=== PATIENT | male | born 1975 | race African-American/Black ===

== ENCOUNTER 2019-06-01 09:47 | Emergency (ER) | payer BC, SELFPAY ==
[2019-06-01 09:55] VITALS: BP 144/80; PULSE 84; RESP 15; TEMP 37.7; O2SAT 100
[2019-06-01 09:58] VITALS: O2SAT 100
--- NOTE | 2019-06-01 10:13 | ED.URI ---
HPI - URI/Sore Throat General Chief Complaint: Upper Respiratory Infection <Cinthya Das PA-C - Last Filed: 06/01/19 10:21> Stated Complaint: FEVER, CHILLS, BODY ACHES <Cinthya Das PA-C - Last Filed: 06/01/19 10:21> Time Seen by Provider: 06/01/19 09:54 <DAE Boudreaux Last Filed: 06/01/19 10:21> Source: patient <DAE Boudreaux Last Filed: 06/01/19 10:21> Mode of arrival: ambulatory <DAE Boudreaux Last Filed: 06/01/19 10:21> Limitations: no limitations <DAE Boudreaux Last Filed: 06/01/19 10:21> History of Present Illness HPI Narrative: This is a 44 year old male that presents to the ER for cold symptoms since yesterday. Reports over the last week he did have a mild cough. Then last night he started to have fever, myalgias and fatigue as well. Also reports some congestion and rhinorrhea. He did not get his influenza vaccine this year. Denies chest pain or shortness of breath, <Cinthya Das PA-C - Last Filed: 06/01/19 10:21> Related Data Allergies/Adverse Reactions: Allergies Allergy/AdvReac Type Severity Reaction Status Date / Time No Known Allergies Allergy Verified 06/01/19 09:58 <Cinthya Das PA-C - Last Filed: 06/01/19 10:21> Review of Systems Review of Systems: Narrative: CONSTITUTIONAL: Reports fever, chills ENT: Reports rhinorrhea, congestion. Denies sore throat, or otalgia. CARDIOVASCULAR: Denies chest pain RESPIRATORY: Reports cough. Denies dyspnea. <DAE Boudreaux Last Filed: 06/01/19 10:21> All systems reviewed & are unremarkable except as noted in HPI and below <DAE Boudreaux Last Filed: 06/01/19 10:21> PMFSH Past Medical History Medical History: Medical History (Updated 03/14/20 @ 10:20 by Cinthya Das PA-C) No significant medical problems <Cinthya Das PA-C - Last Filed: 06/01/19 10:21> Social History Social History: Social History (Updated 06/01/19 @ 10:15 by Cinthya Das PA-C) Smoking status: Never smoker Gender identity (if verbalized by the patient): Male <Cinthya Das PA-C - Last Filed: 06/01/19 10:21> Exam Narrative: Exam Narrative: GENERAL: Well-appearing, well-nourished, and in no acute distress. HEAD: Normocephalic, atraumatic. EYES: EOMI. ENT: Nares clear, no rhinorrhea or epistaxis. Mucous membranes moist. Oropharynx without tonsillar hypertrophy exudate or other lesions. Bilateral TMs pearly allen non-bulging NECK: Supple. No adenopathy or masses. CHEST: Clear to auscultation. No respiratory distress. No wheezes rales or rhonchi HEART: Regular rate and rhythm. No murmur heard. Normal peripheral pulses. EXTREMITIES: Normal range of motion. No edema. SKIN: Warm, dry, no rash. NEURO: No focal deficits. Alert and oriented x3. PSYCH: Normal mood and affect <Cinthya Das PA-C - Last Filed: 06/01/19 10:21> Course Vital Signs Vital signs: Vital Signs Temperature 99.9 F H 06/01/19 09:55 Pulse Rate 84 06/01/19 09:55 Respiratory Rate 15 06/01/19 09:55 Blood Pressure 144/80 H 06/01/19 09:55 Pulse Oximetry 100 06/01/19 09:55 Temperature 99.9 F H 06/01/19 09:55 Pulse Rate 81 06/01/19 10:31 Respiratory Rate 14 06/01/19 10:31 Blood Pressure 124/75 06/01/19 10:31 Pulse Oximetry 100 06/01/19 10:31 <Cinthya Das PA-C - Last Filed: 06/01/19 10:21> Vital Signs Temperature 99.9 F H 06/01/19 09:55 Pulse Rate 84 06/01/19 09:55 Respiratory Rate 15 03/14/20 09:55 Blood Pressure 144/80 H 06/01/19 09:55 Pulse Oximetry 100 06/01/19 09:55 Temperature 99.9 F H 06/01/19 09:55 Pulse Rate 81 06/01/19 10:31 Respiratory Rate 14 06/01/19 10:31 Blood Pressure 124/75 06/01/19 10:31 Pulse Oximetry 100 06/01/19 10:31 <Emelia Ohara MD - Last Filed: 06/01/19 17:16> MDM - URI/Sore Throat MDM Narrative Medical decision making narrative: Patient pres
[2019-06-01] MEDS: IBUPROFEN 600 MG TABLET PO (10:23)
[2019-06-01] MEDS: OSELTAMIVIR PHOSPHATE 75 MG CAPSULE PO (10:23)
[2019-06-01 10:31] VITALS: BP 124/75; PULSE 81; RESP 14; O2SAT 100
== END 2019-06-01 10:32 | disposition home or self-care (01) ==
PROVIDERS: Emergency Provider General Practice
DX: J10.1 Influenza due to other identified influenza virus with other respiratory manifestations (principal)
CPT/HCPCS: 87804; 99283; A9270

== ENCOUNTER 2019-11-05 10:38 | Emergency (ER) | payer BC, SELFPAY ==
[2019-11-05 11:16] VITALS: BP 114/62; PULSE 66; RESP 18; TEMP 36.7; O2SAT 99
[2019-11-05 11:18] VITALS: RESP 18
--- NOTE | 2019-11-05 11:54 | ED.GENADULT ---
HPI - General Adult General Chief complaint: Recheck/Abnormal Lab/Rx Stated complaint: wants covid test/cough Time Seen by Provider: 11/05/19 11:36 Source: patient Mode of arrival: ambulatory Limitations: no limitations History of Present Illness HPI narrative: Patient presents for COVID testing. His son tested +3 weeks ago. He needs a note for work that he can return. He has had a slight cough for couple weeks. He has had no fever chills or sweats. He has no nausea abdominal pain or diarrhea. He takes no prescription medication. He denies ever having had surgery. He smokes cigars. Drinks moderate alcohol. Does not smoke marijuana. He has no pain. 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 Severity: mild Related Data Allergies Allergy/AdvReac Type Severity Reaction Status Date / Time No Known Allergies Allergy Verified 06/01/19 09:58 Review of Systems Review of Systems: Narrative: CONSTITUTIONAL: Denies fever, chills, or sweats. ENT: Denies rhinorrhea, congestion, sore throat, or otalgia. CARDIOVASCULAR: Denies chest pain, palpitations, or edema. RESPIRATORY: Denies cough or dyspnea. GASTROINTESTINAL: Denies abdominal pain, nausea, vomiting, or diarrhea. SKIN: Denies rash or itching. MUSCULOSKELETAL: Denies back pain, joint pain, or myalgia. NEUROLOGIC: Denies headache, numbness, or weakness. All systems reviewed & are unremarkable except as noted in HPI and below PMFSH Past Medical History Medical History Exposure to COVID-19 virus No significant medical problems Surgical History Surgical History No pertinent past surgical history Social History Social History (Updated 11/05/19 @ 11:57 by Marsha Morris MD) Smoking status: Current some day smoker Tobacco type: cigars Alcohol intake: current Substance use: never Gender identity (if verbalized by the patient): Male Exam Narrative: Exam Narrative: GENERAL: Well-appearing, well-nourished, and in no acute distress. Tall and well muscled. HEAD: Normocephalic, atraumatic. EYES: PERRLA and EOMI. ENT: Nares clear, no rhinorrhea or epistaxis. Mucous membranes moist. NECK: Supple. CHEST: Clear to auscultation. No respiratory distress. HEART: Regular rate and rhythm. No murmur heard. Normal peripheral pulses. ABDOMEN: Soft, nontender, nondistended, normal active bowel sounds. EXTREMITIES: Normal range of motion. No edema. SKIN: Warm, dry, no rash. NEURO: No focal deficits. Alert and oriented x3. PSYCH: Normal mood and affect. Course Vital Signs Vital signs: Vital Signs Temperature 98.1 F 11/05/19 11:16 Pulse Rate 66 11/05/19 11:16 Respiratory Rate 18 11/05/19 11:16 Blood Pressure 114/62 11/05/19 11:16 Pulse Oximetry 99 11/05/19 11:16 Temperature 98.1 F 11/05/19 11:16 Pulse Rate 66 11/05/19 11:16 Respiratory Rate 18 11/05/19 11:18 Blood Pressure 114/62 11/05/19 11:16 Pulse Oximetry 99 11/05/19 11:16 Medical Decision Making Medical Records Medical records reviewed: Yes I reviewed the patient's medical records. Vital Signs Vital Signs: Vital Signs Temperature 98.1 F 11/05/19 11:16 Pulse Rate 66 11/05/19 11:16 Respiratory Rate 18 11/05/19 11:16 Blood Pressure 114/62 11/05/19 11:16 Pulse Oximetry 99 11/05/19 11:16 Temperature 98.1 F 11/05/19 11:16 Pulse Rate 66 11/05/19 11:16 Respiratory Rate 18 11/05/19 11:18 Blood Pressure 114/62 11/05/19 11:16 Pulse Oximetry 99 11/05/19 11:16 Discharge Plan Discharge Clinical Impression: Exposure to COVID-19 virus Patient Disposition: Home, Self-Care Condition: Stable Instructions: Normal Exam (ED) Additional Instructions: Outpatient COVID testing sheet given to [facility]?. Prescriptions: No Action oseltamivir 75 mg capsule 75 mg PO Q12H 5 Days Qty: 10 RF: 0 Follow-up/Referrals: PHYSICIAN,HYDRO OPERATOR [Pr
[2019-11-05 12:49] VITALS: BP 114/67; PULSE 62; RESP 16; TEMP 36.8; O2SAT 100
== END 2019-11-05 12:51 | disposition home or self-care (01) ==
PROVIDERS: Emergency Provider Emergency Medicine
DX: Z20.828 Contact with and (suspected) exposure to other viral communicable diseases (principal); R05 Cough; F17.290 Nicotine dependence, other tobacco product, uncomplicated
CPT/HCPCS: 99281

== ENCOUNTER 2019-12-30 16:51 | Emergency (ER) | payer BC, SELFPAY ==
--- NOTE | ~2019-12-30 | CT_ITS ---
EXAMINATION: CTA brain carotid EXAM DATE: 12/30/2019 18:34 INDICATION: Severe frontal headache. TECHNIQUE: Noncontrast head CT. Spiral CTA of the carotid arteries was performed with intravenous i njection 100 cc of Omnipaque 350. Axial, coronal, sagittal reformatted images reviewed. Additional r eformatted images created on dedicated 3-D workstation. NASCET comparable standard used to assess th e degree of arterial stenosis. Spiral CT angiogram cerebral arteries performed with the same intrave nous injection of contrast. Source images of the brain CTA transferred to dedicated workstation for 3 -D rotational image creation. Coronal, sagittal maximum intensity pixel images also reviewed. The d ose-length product (DLP) for this examination was 1827.67 mGy-cm. The exposure was tailored accordi ng to patient size, and iterative reconstruction (ASIR) was used as additional dose reduction techniq ue. There is no prior study for comparison. FINDINGS: There is no carotid plaque or stenosis. The vertebral arteries are codominant. There is no carotid or vertebral basilar arterial dissection or fibromuscular dysplasia. There are no cerebral a rtery aneurysms. There is symmetric cerebral artery arborization. The sagittal, transverse and sigmoi d sinuses enhance normally, no venous sinus thrombosis. Internal cerebral veins also enhance normally . There is no acute intraparenchymal hemorrhage. No evidence of intraparenchymal brain mass lesion. N o evidence of acute infarction. There is no mass effect or midline shift. There is no obstructive hyd rocephalus suspected. There are no extra-axial collections. There are no calvarial acute fractures. Completely opacified frontal and ethmoid sinuses. There is mild bilateral maxillary sinus mucoperiost eal thickening, but with moderate amount of fluid in both of these sinuses. Sinusitis. IMPRESSION: 1. No carotid stenosis. 2. Extensive sinusitis. Reviewed, dictated and finalized at location A.
[2019-12-30 17:03] VITALS: BP 116/73; PULSE 81; RESP 16; TEMP 36.6; O2SAT 99
[2019-12-30 17:40] LABS: Basophils Percent Auto 0.6 % (0.2-1.2); Eosinophils Absolute Auto 0.3 K/mm3 (0-0.3); Eosinophils Percent Auto 8.2 % (0-4.4); Hematocrit 41.6 % (42.0-52.0); Hemoglobin 14.4 g/dL (14.0-18.0); Lymphocytes Absolute Auto 1.23 K/mm3 (0.9-3.2); Lymphocytes Percent Auto 37.2 % (18.3-44.2); Mean Corpuscular HGB Conc 34.6 g/dl (32-36); Mean Corpuscular Hemoglobin 33.3 pg (26-34); Mean Corpuscular Volume 96.1 fl (80-100); Mean Platelet Volume 11.1 fl (7.4-10.4); Monocytes Absolute Auto 0.4 K/mm3 (0.1-0.6); Monocytes Percent Auto 12.1 % (2.6-8.5); Neutrophils Absolute Auto 1.4 K/mm3 (1.3-6.7); Neutrophils Percent Auto 41.9 % (45.5-73.1); Platelet Count Result 209 k/mm3 (150-375); Red Blood Count 4.33 M/mm3 (4.6-6.20); White Blood Count 3.3 K/mm3 (4.5-10.0)
[2019-12-30 17:49] LABS: Anion Gap 7 mmol/L (8-16); Blood Urea Nitrogen 17 mg/dL (9-20); Carbon Dioxide 27 mmol/L (22-30); Chloride 104 mmol/L (98-107); Estimated CRCL calculation 89 ml/min; Estimated Glomerular Filt Rate > 60; Glucose 86 mg/dL (75-110); Potassium 4.6 mmol/L (3.4-5.0); Sodium 138 mmol/L (137-145)
--- NOTE | 2019-12-30 18:01 | ED.GENADULT ---
HPI - General Adult General Chief complaint: Headache Stated complaint: headache Time Seen by Provider: 12/30/19 17:22 Source: patient History of Present Illness HPI narrative: Patient is a 44 y/o male complaining of bilateral frontal headache for 2 weeks. He describes the pain as throbbing and rates it as 7/10. He took Ibuprofen which did not help with his headache. He denies any fever, chills or focal weakness. He states that he had an episode of dizziness like room spinning sensation yesterday which lasted a few minutes. He has no dizziness at this time. He also experiences left finger locking up sometimes. Related Data Home Medications Medication Instructions Recorded Confirmed multivitamin,dp-[id number]-[id number] tablet DAILY 12/30/19 [Complete Multivitamin] Allergies Allergy/AdvReac Type Severity Reaction Status Date / Time No Known Allergies Allergy Verified 12/30/19 17:09 Review of Systems Constitutional: Constitutional: Denies chills, Denies fever(s), Reports headache(s) and Denies weakness Eyes: Eyes: Denies blurry vision ENT: Denies headache(s) and Denies neck pain Cardiovascular: Cardiovascular: Denies chest pain and Denies dyspnea Respiratory: Respiratory: Denies cough and Denies dyspnea Gastrointestinal: Gastrointestinal: Denies abdominal pain, Denies diarrhea, Denies nausea and Denies vomiting Genitourinary: Genitourinary: Denies hematuria and Denies dysuria Musculoskeletal: Musculoskeletal: Denies back pain and Denies neck pain Neurologic: Reports dizziness, Reports headache(s) and Denies weakness [facility] Past Medical History Medical History (Updated 12/31/19 @ 00:00 by [facility]) Exposure to COVID-19 virus No significant medical problems Surgical History Surgical History No pertinent past surgical history Social History Social History Smoking status: Current some day smoker Tobacco type: cigars Alcohol intake: current Substance use: never Gender identity (if verbalized by the patient): Male Exam Const: General: no acute distress and well developed Orientation/consciousness: oriented to person, oriented to place, oriented to time and patient oriented x3 HENMT: Head: normocephalic Ears: external ears normal General nose exam: Normal external nose present Eyes: General: appearance normal, both eyes and all related structures Conjunctivae: conjunctivae normal Neck: Neck: normal visual inspection and full ROM Chest: Chest palpation & inspection: normal inspection of the chest and no tenderness Resp: Effort & Inspection: normal respiratory effort Auscultation: clear to auscultation bilaterally Cardio: Rate: regular rate Rhythm: regular rhythm GI: GI Palp: No abdominal tenderness and Yes Soft to palpation Skin: General skin exam: normal color and turgor normal Neuro: General: oriented to person, oriented to place, oriented to time and patient oriented x3 Cranial nerves: Yes CN's II-XII intact bilaterally Cognition (Neuro): normal cognition Speech: normal speech Motor exam (neuro): 5/5 motor strength present throughout Sensory Exam: normal sensation Coordination: [id number]-[id number] test normal and fmsm-lx-loex test normal Extrem: General: normal to inspection, full ROM and no pedal edema Psych: Appearance: grossly normal Mental Status: mental status grossly normal Affect: normal affect Course Vital Signs Vital signs: Vital Signs Temperature 36.6 C 12/30/19 17:03 Pulse Rate 81 12/30/19 17:03 Respiratory Rate 16 12/30/19 17:03 Blood Pressure 116/73 12/30/19 17:03 Pulse Oximetry 99 12/30/19 17:03 Temperature 36.6 C 12/30/19 17:03 Pulse Rate 68 12/30/19 19:36 Respiratory Rate 16 12/30/19 19:36 Blood Pressure 128/72 12/30/19 19:36 Pulse Oximetry 100 12/30/19 19:36 Medical Decision Making Vital Signs Vit
[2019-12-30] MEDS: KETOROLAC 30 MG/ML VIAL (*BKC) IV PUSH (18:16)
[2019-12-30 19:36] VITALS: BP 128/72; PULSE 68; RESP 16; O2SAT 100
== END 2019-12-30 19:38 | disposition home or self-care (01) ==
PROVIDERS: Emergency Provider Emergency Medicine; PCP Internal Medicine
DX: J32.9 Chronic sinusitis, unspecified (principal); R42 Dizziness and giddiness; F17.290 Nicotine dependence, other tobacco product, uncomplicated
CPT/HCPCS: 36415; 70496; 70498; 80048; 85025; 96374; 99284; J1885; Q9967

== ENCOUNTER → 2020-05-30 07:00 | Outpatient (CLI) | payer BC, SELFPAY ==
[2020-05-30 18:54] LABS: SARS-CoV-2 RNA PCR Negative
== END ==
PROVIDERS: PCP Internal Medicine; Visit Provider Internal Medicine
DX: J01.90 Acute sinusitis, unspecified (principal); Z20.822 Contact with and (suspected) exposure to COVID-19
CPT/HCPCS: C9803; U0003; U0005

== ENCOUNTER 2020-10-06 16:01 | Emergency (ER) | payer BC, SELFPAY ==
--- NOTE | ~2020-10-06 | XR_ITS ---
EXAMINATION: XR chest 2V DATE: 10/06/2020 16:34 INDICATION: Productive cough and shortness of breath TECHNIQUE: PA and lateral views of the chest are obtained. COMPARISON: None available FINDINGS: The lungs are free of acute opacities. There is no pleural effusion or pneumothorax. The ca rdiomediastinal silhouette is normal. The visualized bones and soft tissues are unremarkable. IMPRESSION: 1. No acute cardiopulmonary abnormality. Reviewed, dictated and finalized at location B.
[2020-10-06 16:14] VITALS: BP 128/75; PULSE 77; RESP 14; TEMP 36.5; O2SAT 99
--- NOTE | 2020-10-06 16:14 | ECG_ITS ---
Measurements Intervals [place] Rate: 74 P: 72 ME: 190 QRS: 74 QRSD: 79 T: 32 QT: 353 QTc: 392 Interpretive Statements SINUS RHYTHM INCOMPLETE RIGHT BUNDLE BRANCH BLOCK ST ELEVATION IN ANTEROLATERAL LEADS- PROBABLY EARLY REPOLARIZATION ABNORMALITY BORDERLINE ECG Electronically Signed On 10-06-2020 16:48:45 CDT by Peter Hua D.O.
[2020-10-06 16:31] LABS: Eosinophils Absolute Auto 0.9 K/mm3 (0-0.3); Eosinophils Percent Auto 21.4 % (0-4.4); Hematocrit 42.2 % (42.0-52.0); Hemoglobin 14.4 g/dL (14.0-18.0); Immature Granulocyte Absolute 0.01 K/mm3 (0.00-0.031); Immature Granulocyte Percent A 0.2 % (0-0.5); Lymphocytes Absolute Auto 1.51 K/mm3 (0.9-3.2); Lymphocytes Percent Auto 37.2 % (18.3-44.2); Mean Corpuscular HGB Conc 34.1 g/dl (32-36); Mean Corpuscular Hemoglobin 32.6 pg (26-34); Mean Corpuscular Volume 95.5 fl (80-100); Mean Platelet Volume 11.4 fl (7.4-10.4); Monocytes Absolute Auto 0.5 K/mm3 (0.1-0.6); Monocytes Percent Auto 11.6 % (2.6-8.5); Neutrophils Absolute Auto 1.2 K/mm3 (1.3-6.7); Neutrophils Percent Auto 28.6 % (45.5-73.1); Platelet Count Result 213 k/mm3 (150-375); Red Blood Count 4.42 M/mm3 (4.6-6.20); Red Cell Distribution Width 11.3 % (11.5-14.5); White Blood Count 4.1 K/mm3 (4.5-10.0)
[2020-10-06 16:41] LABS: Anion Gap 7 mmol/L (8-16); Blood Urea Nitrogen 17 mg/dL (9-20); Carbon Dioxide 23 mmol/L (22-30); Chloride 109 mmol/L (98-107); Estimated CRCL calculation 96 ml/min; Estimated Glomerular Filt Rate > 60; Glucose 95 mg/dL (65-110); Potassium 4.6 mmol/L (3.4-5.0); Sodium 139 mmol/L (137-145)
[2020-10-06 18:30] VITALS: BP 114/76; PULSE 78; RESP 18; O2SAT 100; O2SAT 96
[2020-10-06 18:56] VITALS: BP 120/64; PULSE 78; RESP 14; O2SAT 100
--- NOTE | 2020-10-06 19:22 | ED.GENADULT ---
HPI - General Adult General Chief complaint: Upper Respiratory Infection Stated complaint: cough x 1 week Time Seen by Provider: 10/06/20 19:09 Source: patient Mode of arrival: ambulatory Limitations: no limitations History of Present Illness HPI narrative: 45-year-old with no major medical problems here with complaints of cough at times productive in nature for past 4 days. He states that he has been seen at urgent care was given amoxicillin for a URI and sinus infection. He denies any shortness of breath, nausea or vomiting. He has none had Covid vaccination . Onset (ago): day(s) (4) Associated symptoms: denies other symptoms Related Data Home Medications Medication Instructions Recorded Confirmed multivitamin,er-mmmn-yfryadck tablet DAILY 12/30/19 06/02/20 [Complete Multivitamin] Allergies Allergy/AdvReac Type Severity Reaction Status Date / Time No Known Allergies Allergy Verified 12/30/19 17:09 Review of Systems Review of Systems: All systems reviewed & are unremarkable except as noted in HPI and below Constitutional: Constitutional: Reports no additional constitutional complaints Eyes: Eyes: Reports no additional eye complaints Cardiovascular: Cardiovascular: Reports no additional cardiovascular complaints Respiratory: Respiratory: Reports as per HPI Musculoskeletal: Musculoskeletal: Reports no additional musculoskeletal complaints Neurologic: Reports system reviewed and no additional complaints, except as documented PMFSH Past Medical History Medical History Allergies Exposure to COVID-19 virus No significant medical problems Surgical History Surgical History No pertinent past surgical history Family History Family History Mother Hypertension Father , No problems noted. Grandparent No problems noted. Grandparent No problems noted. Grandparent , Cancer No problems noted. Grandparent No problems noted. Sibling Diabetes mellitus Social History Social History Smoking status: Current some day smoker Tobacco type: cigars Additional smoking assessment comments: smokes cigars only on weekends Alcohol intake: current Alcohol use details: Tequila on weekends Substance use: never Gender identity (if verbalized by the patient): Male Exam Narrative: Exam Narrative: GENERAL: Well-appearing, well-nourished, and in no acute distress. HEAD: Normocephalic, atraumatic. EYES: PERRLA and EOMI. NECK: Supple. CHEST: Clear to auscultation. No respiratory distress. HEART: Regular rate and rhythm. No murmur heard. Normal peripheral pulses. ABDOMEN: Soft, nontender, nondistended, normal active bowel sounds. EXTREMITIES: Normal range of motion. No edema. SKIN: Warm, dry, no rash. NEURO: No focal deficits. Alert and oriented x3. PSYCH: Normal mood and affect. Course Course Emergency Course: Inform patient about his lab work, x-ray findings. Advised him to continue amoxicillin this time it appears to be more viral than bacterial. Vital Signs Vital signs: Vital Signs Temperature 36.5 C 10/06/20 16:14 Pulse Rate 77 10/06/20 16:14 Respiratory Rate 14 10/06/20 16:14 Blood Pressure 128/75 10/06/20 16:14 Pulse Oximetry 99 10/06/20 16:14 Temperature 36.5 C 10/06/20 16:14 Pulse Rate 78 10/06/20 18:56 Respiratory Rate 10/06/20 18:56 Blood Pressure 120/64 10/06/20 18:56 Pulse Oximetry 100 10/06/20 18:56 Medical Decision Making Vital Signs Vital Signs: Vital Signs Temperature 36.5 C 10/06/20 16:14 Pulse Rate 77 10/06/20 16:14 Respiratory Rate 14 10/06/20 16:14 Blood Pressure 128/75 10/06/20 16:14 Pulse Oximetry 99
== END 2020-10-06 19:39 | disposition home or self-care (01) ==
PROVIDERS: Emergency Medicine; Emergency Provider Family Medicine; PCP Internal Medicine
DX: J20.8 Acute bronchitis due to other specified organisms (principal); F17.290 Nicotine dependence, other tobacco product, uncomplicated; I45.10 Unspecified right bundle-branch block
CPT/HCPCS: 36415; 71046; 80048; 85025; 93005; 99284

== ENCOUNTER 2020-10-22 13:04 | Outpatient (CLI) | payer BC, SELFPAY ==
--- NOTE | ~2020-10-22 | CT_ITS ---
EXAMINATION: CT sinus wo con DATE: 10/22/2020 13:43 INDICATION: Acute sinusitis TECHNIQUE: Computed tomography (CT) of the paranasal sinuses was performed without contrast. Iterativ e reconstruction technique was employed. Exam dose: 275.33 mGy-cm total exam DLP. COMPARISON: None FINDINGS: There is leftward bowing of the nasal septum. Moderate prominence of the inferior nasal tur binates. Opacified bilateral interlamellar cell of the middle nasal turbinates. The ostiomeatal units are completely opacified bilaterally. There is prominent partial opacification of the right frontal sinus and right frontoethmoid recess. There is complete opacification of the left frontal sinus. There is severe almost complete opacificat ion of the ethmoid air cells bilaterally. There is nearly complete opacification of both maxillary si nuses. Focal areas of mild mucoperiosteal thickening of the sphenoid sinuses. The mastoid air cells are normally developed and aerated bilaterally. IMPRESSION: Leftward bowing of nasal septum Opacified bilateral interlamellar cell of middle nasal turbinates Complete opacification of the ostiomeatal units Complete opacification of left frontal sinus, moderate opacification of right frontal sinus, nearly c omplete opacification of the ethmoid air cells and maxillary sinuses Mild mucoperiosteal thickening of the sphenoid sinuses Reviewed, dictated and finalized at Location A. Reviewed, dictated and finalized at location B. IMPRESSION: Leftward bowing of nasal septum Opacified bilateral interlamellar cell of middle nasal turbinates Complete opacification of the ostiomeatal units Complete opacification of left frontal sinus, moderate opacification of right f rontal sinus, nearly complete opacification of the ethmoid air cells and maxill michael sinuses Mild mucoperiosteal thickening of the sphenoid sinuses
== END 2020-10-22 13:05 | disposition home or self-care (01) ==
PROVIDERS: PCP Internal Medicine; Visit Provider Otolaryngology
DX: J01.90 Acute sinusitis, unspecified (principal); J33.9 Nasal polyp, unspecified; J34.2 Deviated nasal septum; J34.3 Hypertrophy of nasal turbinates; J34.89 Other specified disorders of nose and nasal sinuses; R09.81 Nasal congestion; R09.82 Postnasal drip; R43.8 Other disturbances of smell and taste; T78.40XA Allergy, unspecified, initial encounter
CPT/HCPCS: 70486

== ENCOUNTER 2020-11-19 17:32 | Emergency (ER) | payer BC, SELFPAY ==
--- NOTE | ~2020-11-19 | XR_ITS ---
EXAMINATION: XR chest 2V DATE: 11/19/2020 17:54 INDICATION: Cough. TECHNIQUE: Frontal and lateral views of the chest were obtained on 3 radiographs. COMPARISON: Chest 2 views 10/06/2020, neck CT 12/30/2019 FINDINGS: There is mild scarring at the lung apices. A calcified right lung nodule is consistent with old granulomatous disease. No pleural effusion or pneumothorax. The heart size is normal. IMPRESSION: 1. Stable mild scarring at the lung apices. Reviewed, dictated and finalized at location A.
[2020-11-19 17:36] VITALS: BP 130/77; PULSE 90; RESP 20; TEMP 36.5; O2SAT 94
--- NOTE | 2020-11-19 17:41 | ED.URI ---
HPI - URI/Sore Throat General Chief Complaint: Upper Respiratory Infection Stated Complaint: COUGH Time Seen by Provider: 11/19/20 17:42 Source: patient and RN notes reviewed Mode of arrival: ambulatory Limitations: no limitations History of Present Illness HPI Narrative: 45-year-old male presents with concern for cough, runny nose, headache. Reports symptoms of worsened in the last week. Reports he was in the emergency room little over a month ago with similar symptoms and was diagnosed with bronchitis. Reports he was given antibiotics and steroids. Reports a brief reprieve in symptoms after those medications finished however symptoms returned after several days. He denies fever, reports general malaise, fatigue. He denies shortness of breath. Reports occasional forceful coughing fits, one that caused him to vomit. He is not vaccinated for Covid, has not had any known Covid exposure. MD elicited complaint: cough Related Data Allergies Allergy/AdvReac Type Severity Reaction Status Date / Time No Known Allergies Allergy Verified 11/19/20 17:36 Review of Systems Review of Systems: CONSTITUTIONAL: Reports fatigue, malaise, chills. Denies sweats, or fever. EYES: Denies visual changes, redness, or discharge. ENT: Reports rhinorrhea. Denies congestion, sinus pain, otalgia and sore throat. CARDIOVASCULAR: Denies chest pain, palpitations, or edema. RESPIRATORY: Reports persistent cough. Denies dyspnea. GASTROINTESTINAL: Denies abdominal pain, nausea, vomiting, diarrhea SKIN: Denies rash or itching. MUSCULOSKELETAL: Denies myalgia. NEUROLOGIC: Reports headache. All systems reviewed & are unremarkable except as noted in HPI and below PMFSH Past Medical History Medical History Allergies Exposure to COVID-19 virus No significant medical problems Surgical History Surgical History No pertinent past surgical history Family History Family History Mother Hypertension Father , No problems noted. Grandparent No problems noted. Grandparent No problems noted. Grandparent , Cancer No problems noted. Grandparent No problems noted. Sibling Diabetes mellitus Social History Social History Smoking status: Current some day smoker Tobacco type: cigars Additional smoking assessment comments: smokes cigars only on weekends Alcohol intake: current Alcohol use details: Tequila on weekends Substance use: never Gender identity (if verbalized by the patient): Male Comments At time of signature, agree with nursing past medical, surgical, social and family history. There is no relevant family history pertinent to the presenting complaint Exam Narrative: GENERAL: Well-appearing, well-nourished, and in no acute distress. HEAD: Normocephalic EYES: PERRLA, conjunctivae clear ENT: Nares clear, clear discharge. Mucous membranes moist. TM pearly allen with dull light reflex bilaterally; no tragal tenderness. Oropharynx not erythematous without lesions. Tonsils not enlarged and without exudate, no drooling, no hoarseness, no trismus, uvula midline. NECK: Supple. No lymphadenopathy CHEST: Clear to auscultation, breath sounds equal. Aeration fair. No wheezing, rhonchi, rales, or stridor. No respiratory distress, speaks in full sentences. HEART: Regular rate and rhythm. No murmur heard. SKIN: Warm, dry, no rash. NEURO: Alert and oriented x3. PSYCH: Normal mood and affect Course Course Emergency Course: Patient is aware of diagnosis, understands and agrees to treatment plan. Anticipatory guidance given. Patient agrees to follow-up as directed and is aware of reasons to seek care at the emergency department. [place]
[2020-11-23 03:44] LABS: SARS-CoV-2 RNA PCR Positive
== END 2020-11-19 18:30 | disposition home or self-care (01) ==
PROVIDERS: Emergency Provider Nurse Practitioner; PCP Internal Medicine
DX: R05 Cough (principal); J98.4 Other disorders of lung; Z20.822 Contact with and (suspected) exposure to COVID-19; F17.290 Nicotine dependence, other tobacco product, uncomplicated
CPT/HCPCS: 71046; 87426; 99213; C9803; G0463; U0003; U0005

== ENCOUNTER 2020-12-11 00:57 | Day surgery (SDC) | payer BC, SELFPAY ==
[2020-12-03 13:15] VITALS: BMI 24.4
--- NOTE | 2020-12-10 08:56 | PM.IMHP ---
H&P: HPI History of Present Illness Date/Time: 12/10/20 08:56 Chief Complaint: Nasal obstruction nasal congestion chronic sinusitis nasal polyps septal deviation inferior turbinate hypertrophy Narrative: patient presents for planned surgical procedures, no change in symptoms no change in history Review of Systems Constitutional: Constitutional: Denies fatigue, Denies fever(s) and Denies lethargy Eyes: Eyes: Denies blurry vision and Denies change in vision ENT: Reports as per HPI Cardiovascular: Cardiovascular: Denies chest pain Respiratory: Respiratory: Denies cough Endocrine: Endocrine: Denies fatigue Hematologic/Lymphatic: Hematologic/Lymphatic: Denies easy bleeding, Denies easy bruising and Denies lymphadenopathy Allergic/Immunologic: Allergic/Immunologic: Denies seasonal rhinorrhea FOR[facility]LY [facility] Past Medical History Medical History Allergies Exposure to COVID-19 virus No significant medical problems Surgical History Surgical History No pertinent past surgical history Family History Family History Mother Hypertension Father , No problems noted. Grandparent No problems noted. Grandparent No problems noted. Grandparent , Cancer No problems noted. Grandparent No problems noted. Sibling Diabetes mellitus Social History Social History Smoking status: Never smoker Tobacco type: cigars Additional smoking assessment comments: smokes cigars only on weekends Alcohol intake: current Alcohol use details: Tequila on weekends Substance use: never Gender identity (if verbalized by the patient): Male Spiritual care concerns: No Meds Home Medications and Allergies Home Medications Medication Instructions Recorded Confirmed Type prednisone 20 mg tablet 20 mg PO DAILY #4 tablet 12/07/20 Rx Allergies Allergy/AdvReac Type Severity Reaction Status Date / Time No Known Allergies Allergy Verified 12/03/20 13:14 Exam Const: General: cooperative, healthy appearing, comfortable, well developed and alert HENMT: Head: normal to inspection, normocephalic and atraumatic Ears: hearing grossly normal bilaterally, external ears normal, TM's normal bilaterally and EAC's normal General nose exam: Normal external nose present, Normal nares present and Other nasal findings present ( septal deviation nasal polyps inferior turbinate hypertrophy) Face and sinus: normal facial exam Mouth: Yes Normal oral and palatal mucosa present, Yes lip normal, Yes tongue normal, Yes oropharynx normal and Yes moist mucous membranes Teeth and gingiva: dentition normal and gingiva normal Throat: posterior oropharynx normal, tonsils normal and uvula midline Eyes: General: appearance normal, both eyes and all related structures Periorbital: periorbital findings normal Eyelids: eyelids normal Conjunctivae: conjunctivae normal Sclera: sclerae normal Neck: Neck: normal visual inspection, full ROM and no lymphadenopathy Thyroid: thyroid normal Lymphatic: no lymphadenopathy noted Resp: Effort & Inspection: normal respiratory effort and able to speak in complete sentences Cardio: Jugular venous distension: no JVD Neuro: Cranial nerves: Yes CN's II-XII intact bilaterally Assessment and Plan Assessment and plan (1) PND (post-nasal drip): Code(s): R09.82 - Postnasal drip Status: Acute Assessment and Plan: plan is for the OR for bilateral image guided endoscopic maxillary antrostomies total ethmoidectomies sphenoidotomies frontal sinusotomies septoplasty inferior turbinate reduction with outfracture. Risks were discussed including bleeding infection postoperative pain postope
[2020-12-11] VITALS (8 sets, daily range): BP systolic 111–148; BP diastolic 75–88; PULSE 62–80; RESP 14–20; TEMP 36.2–36.3; O2SAT 96–100; BMI 23.2
--- NOTE | 2020-12-11 06:57 | WPDHPUPDATE1 ---
History and Physical Update Update Date/Time: 12/11/20 06:57 History and Physical has been reviewed, including an updated exam of the patient. There are NO changes in the patient's condition. Risks, benefits, and alternatives have been discussed and questions answered. Patient agrees to proceed with procedure.
--- NOTE | 2020-12-11 08:58 | P.PNAN_ITS ---
Anes - Initial Pre Proc Eval Procedure: Operation Date: 12/11/20 10:[address] Image Guided, Bilateral Inferior Turbinectomy, Bilateral Maxillary Antrostomy, Total Ethmoidectomy, Frontal Sinusotomy, Sphenoidotomy, Nasal Polypectomy - Mert Muñoz MD s Septoplasty - eMrt Muñoz MD Date/Time: 12/11/20 08:58 Surgeon: Mert Muñoz MD Pre Op Diagnosis: chronic sinusitis Patient Data Age: 45 Gender: M Height: 1.91 m Weight: 84.4 kg Last Vital Signs Temp 36.3 C L 12/11/20 08:35 Pulse 62 12/11/20 08:35 Resp 16 12/11/20 08:35 BP 116/75 12/11/20 08:35 Pulse Ox 100 12/11/20 08:35 Allergies Allergy/AdvReac Type Severity Reaction Status Date / Time No Known Allergies Allergy Verified 12/03/20 13:14 Home Medications Medication Instructions Recorded Confirmed Type prednisone 20 mg tablet 20 mg PO DAILY #4 tablet 12/07/20 Rx Patient hx anesthesia problems: none Family hx anesthesia problems: none Results Review: All pre-operative results and documents have been reviewed as part of the pre-operative evaluation. [facility] Past Medical History Medical History Allergies Exposure to COVID-19 virus No significant medical problems Surgical History Surgical History No pertinent past surgical history Family History Family History Mother Hypertension Father , No problems noted. Grandparent No problems noted. Grandparent No problems noted. Grandparent , Cancer No problems noted. Grandparent No problems noted. Sibling Diabetes mellitus Social History Social History Smoking status: Never smoker Tobacco type: cigars Additional smoking assessment comments: smokes cigars only on weekends Alcohol intake: current Alcohol use details: Tequila on weekends Substance use: never Living arrangements: with family Gender identity (if verbalized by the patient): Male Spiritual care concerns: No Anes - Eval Final PreProcedure Day of Procedure 12/11/20 08:58 Patient weight: normal Heart: regular rate and rhythm Lungs: clear to auscultation Airway: Mallampati scale class II Neurological: alert and oriented Last oral intake: >/= 8 hours ASA classification: II Emergent: no Anesthetic plan: proceed Anesthesia type and monitoring: general ETT and standard monitoring Results Review: All pre-operative results and documents have been reviewed as part of the pre-operative evaluation. Informed Consent: The patient's anesthetic plan and its attendant risks and benefits were discussed with the patient/family/POA. Questions were solicited and answers provided to the satisfaction of the patient/family/POA.
[2020-12-11] MEDS: LACTATED RINGERS 1,000 ML 30 ML IV CONT ×2 (09:05→13:32)
[2020-12-11] MEDS: ACETAMINOPHEN 500 MG TABLET 1000 MG PO (09:08)
[2020-12-11] MEDS: OXYMETAZOLINE HCL 0.05% NAS 15 ML BTL (*BKC) 1 SPRAY NASAL (09:08)
--- NOTE | 2020-12-11 10:35 | SUR.PREOP ---
1035- Notified patient surgery start time will be delayed. Patient verbalized understanding.
[2020-12-11] MEDS: ceFAZolin 2 GM/D5W 50 ML 2 GM/50 ML BAG IVPB (10:55)
[2020-12-11] MEDS: OXYMETAZOLINE HCL 0.05% NAS 15 ML BTL (*BKC) 1 SPRAY XX (11:08)
[2020-12-11] MEDS: LIDO 1%/EPINEPHRINE/PF 1:200,000 30 ML VIAL XX (12:32)
--- NOTE | 2020-12-11 14:11 | W.PM.PROC2 ---
Procedure Note - Detailed Date of Procedure 12/11/20 Pre-op Diagnosis Nasal polyps, nasal obstruction, nasal congestion, inferior turbinate hypertrophy, septal deviation chronic sinusitis Post-op Diagnosis same Procedure Performed 1. Bilateral endoscopic image guided maxillary antrostomy 2. Bilateral endoscopic image guided total ethmoidectomy 3. Bilateral endoscopic image guided sphenoidotomy 4. Bilateral image guided endoscopic frontal sinusotomy 5. Polypectomy 6. Endoscopic assisted septoplasty 7. Inferior turbinate outfracture and submucosal resection 8. Bilateral middle turbinectomy Surgeon Mert Muñoz MD Anesthesia general Indications See above Findings Nasal polyps throughout septal deviation inferior turbinate hypertrophy all the aforementioned removed and corrected at the end of surgery patent sinonasal passages excellent hemostasis Description of Procedure The patient was correctly identified and consent was verified in the preoperative holding area. The patient was then brought to the operating room and a time-out performed. General anesthesia was induced and endotracheal tube was secured the patient's airway and taped to the left lower lip. Patient was then prepped and draped for the aforementioned procedures. Second time-out performed. Afrin-soaked pledgets placed in bilateral nasal passages and allowed to sit for 5 minutes then removed. Image guidance initiated. Total 8 cc of 1% lidocaine with 1 100,000 parts epinephrine was injected into the nasal septum and inferior turbinates. Braeden incision made on the left side of the nasal septum left mucoperichondrial flap elevated with caudal and 7 Hebrew suction. Nasal septum transected right mucoperichondrial septal flap elevated. Deviated septum removed combination of osteotome 15 blade Carlos Cat forceps and Gabriella forceps. 0 degree endoscope utilized to perform the majority of sinus surgery as well as microdebrider ball-tip probe backbiter and Kerrison image guidance utilized to confirm debridement of nasal polyps and opening of sinuses from the septum medially to the orbit laterally to the skull base superiorly maxillary antrostomy created with double ball tip probe and backbiter as well as straight through cut and microdebrider total ethmoidectomy performed with image guided microdebrider with 4 mm blade and Kerrison sphenoidotomy created with 1 mm Kerrison and 3 mm Kerrison as well as microdebrider this was performed bilaterally in hemostasis achieved using the intermittent application of Afrin-soaked pledgets. 70 degree scope utilized to perform the frontal sinusotomies also 70 degree suction with image guidance utilized frontal sinuses open widely. Of note the right frontal sinus had a bifid thick bone but patent bilateral outflow tracts. All the sinus surgeries performed bilaterally polypectomies performed bilaterally as well. Following procedure nova pack was placed in the bilateral 4 middle meati I to help with healing as well as hemostasis. Inferior turbinates entered bilaterally in the anterior portion using microdebrider with inferior turbinate blade they were debrided in the submucosal plane. [place] tips were cauterized with Bovie suction electrocautery at a setting of 12. The stumps of the middle turbinates which were removed prior to the sinus surgery the straight through cut were also cauterized with Bovie suction electrocautery. At the end of the procedure hemostasis was excellent. The inferior turbinates were then outfractured with a [place] elevator. A septal perforation was quilted to close using a 5 0 fast gut suture on a Chi needle. The Braeden incision was closed with 4 interrupted 5 0 fast gut sutures. Bilateral nasal passages were suctioned the posterior choana. Hemostasis was excellent. Singh splints were placed bilaterally and sutured anteriorly using interrupted excuse me a mattressed 3-0 nylon suture. Care the patient is turned Anesthesiology. Total
[2020-12-11] MEDS: oxyCODONE HCL (*CRX) 5 MG TAB IR PO (15:00)
== END 2020-12-11 16:00 | disposition home or self-care (01) ==
PROVIDERS: PCP Internal Medicine; Visit Provider Otolaryngology
PROC: (CPT 30140; principal; 2020-12-11 10:30)
PROC: (CPT 30520; 2020-12-11 10:30)
DX: J32.9 Chronic sinusitis, unspecified (principal); J34.3 Hypertrophy of nasal turbinates; J34.2 Deviated nasal septum; J33.9 Nasal polyp, unspecified; J34.89 Other specified disorders of nose and nasal sinuses; R09.81 Nasal congestion
CPT/HCPCS: 30140; 31256; 31257; 31253; 61782; 30520; A9270; J0330; J0690; J1100; J2250; J2405; J2704; J3010; J7120

== ENCOUNTER 2020-12-27 08:47 | Emergency (ER) | payer BC, SELFPAY ==
--- NOTE | ~2020-12-27 | XR_ITS ---
XR chest 1V portable DATE: 12/27/2020 10:12 INDICATION: Midsternal chest pressure. Bilateral upper extremity numbness. TECHNIQUE: Portable AP chest radiographs on 12/27/2020 at 08 and 1009 hours COMPARISON: 11/19/2020 PA and lateral chest FINDINGS: Normal heart size. No hilar or mediastinal enlargement. Bilateral hyperinflation. No pulmonary infiltrate or consolidation, pleural effusion or pulmonary vas cular congestion or pneumothorax. IMPRESSION: Bilateral hyperinflation. No active cardiopulmonary disease Reviewed, dictated and finalized at location A.
[2020-12-27 09:09] VITALS: BP 124/81; PULSE 62; RESP 18; TEMP 36.5; O2SAT 98
[2020-12-27 10:00] VITALS: BP 176/95; PULSE 57; RESP 18; O2SAT 99
--- NOTE | 2020-12-27 10:01 | ECG_ITS ---
Measurements Intervals [place] Rate: 63 P: 72 SD: 196 QRS: 67 QRSD: 87 T: 41 QT: 383 QTc: 393 Interpretive Statements SINUS RHYTHM INCOMPLETE RIGHT BUNDLE BRANCH BLOCK ST ELEVATION IN ANTEROLATERAL LEADS- PROBABLY EARLY REPOLARIZATION ABNORMALITY BASELINE ARTIFACT- I, II, III, AVR, AVL, AVF, V1 BORDERLINE ECG Electronically Signed On 12-27-2020 18:08:22 CDT by Peter Hua D.O.
[2020-12-27] MEDS: ASPIRIN 81 MG CHEWABLE TABLET 324 MG PO (10:09)
[2020-12-27 10:31] LABS: Basophils Percent Auto 0.3 % (0.2-1.2); Eosinophils Absolute Auto 0.2 K/mm3 (0-0.3); Eosinophils Percent Auto 7.2 % (0-4.4); Hematocrit 40.2 % (42.0-52.0); Hemoglobin 13.6 g/dL (14.0-18.0); Lymphocytes Percent Auto 44.9 % (18.3-44.2); Mean Corpuscular HGB Conc 33.8 g/dl (32-36); Mean Corpuscular Hemoglobin 33.7 pg (26-34); Mean Corpuscular Volume 99.8 fl (80-100); Monocytes Absolute Auto 0.4 K/mm3 (0.1-0.6); Monocytes Percent Auto 12.3 % (2.6-8.5); Neutrophils Absolute Auto 1.2 K/mm3 (1.3-6.7); Neutrophils Percent Auto 35.3 % (45.5-73.1); Platelet Count Result 190 k/mm3 (150-375); Red Blood Count 4.03 M/mm3 (4.6-6.20); White Blood Count 3.3 K/mm3 (4.5-10.0)
[2020-12-27 10:44] LABS: Anion Gap 7 mmol/L (8-16); Blood Urea Nitrogen 15 mg/dL (9-20); Calcium 9.3 mg/dL (8.4-10.2); Carbon Dioxide 27 mmol/L (22-30); Chloride 105 mmol/L (98-107); Estimated CRCL calculation 106 ml/min; Estimated Glomerular Filt Rate > 60; Glucose 91 mg/dL (65-110); Potassium 4.1 mmol/L (3.4-5.0); Sodium 139 mmol/L (137-145)
[2020-12-27 10:55] LABS: Troponin I < 0.012 ng/mL (0.000-0.034)
[2020-12-27 12:00] VITALS: BP 121/68; PULSE 70; RESP 18; O2SAT 96
--- NOTE | 2020-12-27 13:05 | ED.GENADULT ---
HPI - General Adult General Chief complaint: Neuro Symptoms/Deficit Stated complaint: Dizzy, bilateral arm numbness Time Seen by Provider: 12/27/20 09:18 Source: patient and family Mode of arrival: ambulatory Limitations: no limitations History of Present Illness HPI narrative: 45-year-old male Generally in good health Patient had worked his usual overnight shift at the [employer] arriving home around 7 AM While he was getting ready to go to sleep he noticed a sensation which he initially described as numbness but really was paresthesias in both upper extremities along with some mild nausea and epigastric/lower chest discomfort No shortness of breath, no diaphoresis, no dizziness, no palpitation Symptoms are resolved at this time Related Data Allergies Allergy/AdvReac Type Severity Reaction Status Date / Time No Known Allergies Allergy Verified 12/16/20 13:04 Review of Systems Review of Systems: All systems reviewed & are unremarkable except as noted in HPI and below Constitutional: Constitutional: Reports no additional constitutional complaints, Denies chills, Denies fever(s) and Denies headache(s) Eyes: Eyes: Reports no additional eye complaints and Denies change in vision ENT: Denies headache(s) and Denies sore throat Cardiovascular: Cardiovascular: Reports chest pain and Denies dyspnea Respiratory: Respiratory: Denies cough and Denies dyspnea Gastrointestinal: Gastrointestinal: Denies abdominal pain, Denies diarrhea, Reports nausea and Denies vomiting Genitourinary: Genitourinary: Denies dysuria and Denies urinary frequency Musculoskeletal: Musculoskeletal: Denies deformity, Denies arthralgias, Denies joint swelling and Denies numbness Integumentary/Breasts: Skin/Breast: Denies rash and Denies wounds Neurologic: Denies headache(s), Denies focal weakness and Reports numbness Comments: Paresthesias Psychiatric: Psychiatric: Reports no additional psychiatric complaints Endocrine: Endocrine: Reports no additional endocrine complaints Hematologic/Lymphatic: Hematologic/Lymphatic: Reports no additional hematologic/lymphatic complaints Allergic/Immunologic: Allergic/Immunologic: Reports no additional allergic/immunologic complaints PMFSH Past Medical History Medical History (Updated 12/27/20 @ 14:21 by Xu Conte MD) Allergies Exposure to COVID-19 virus No significant medical problems Surgical History Surgical History H/O sinus surgery No pertinent past surgical history Family History Family History Mother Hypertension Father , No problems noted. Grandparent No problems noted. Grandparent No problems noted. Grandparent , Cancer No problems noted. Grandparent No problems noted. Sibling Diabetes mellitus Social History Social History Smoking status: Never smoker Tobacco type: cigars Additional smoking assessment comments: smokes cigars only on weekends Alcohol intake: current Alcohol use details: Tequila on weekends Substance use: never Gender identity (if verbalized by the patient): Male Spiritual care concerns: No Exam Const: General: cooperative, healthy appearing, no acute distress and alert Orientation/consciousness: patient oriented x3 (alert) HENMT: Head: normal to inspection, normocephalic and atraumatic Ears: external ears normal General nose exam: no epistaxis Eyes: Conjunctivae: conjunctivae normal EOM: EOMs intact bilaterally Neck: Neck: normal visual inspection, supple and no JVD Resp: Effort & Inspection: normal respiratory effort and not labored Auscultation: clear to auscultation bilaterally, no rales, no rhonchi, no wheezes and other (BS =) Cardio: Rate: regular rate Rh
[2020-12-27 14:06] LABS: Troponin I < 0.012 ng/mL (0.000-0.034)
== END 2020-12-27 14:45 | disposition home or self-care (01) ==
PROVIDERS: Emergency Provider Emergency Medicine; PCP Internal Medicine
DX: R20.2 Paresthesia of skin (principal); R07.9 Chest pain, unspecified; F17.290 Nicotine dependence, other tobacco product, uncomplicated
CPT/HCPCS: 36415; 71045; 80048; 84484; 85025; 93005; 99284; A9270

== ENCOUNTER → 2021-02-25 10:11 | Outpatient (CLI) | payer BC, SELFPAY ==
--- NOTE | ~2021-02-25 | XR_ITS ---
EXAMINATION: XR chest 2V DATE: 02/25/2021 10:22 INDICATION: Cough TECHNIQUE: PA and lateral views of the chest were obtained. COMPARISON: Chest radiograph dated 12/27/2020 FINDINGS: The lungs remain clear with no focal airspace opacities, pulmonary edema, pleural effusion or pneumot horax. The cardiomediastinal silhouette is normal. Visualized bones and soft tissues are unremarkable . IMPRESSION: 1. No acute cardiopulmonary disease. Reviewed, dictated and finalized at location B. 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
== END ==
PROVIDERS: PCP Family Medicine; Visit Provider Family Medicine
DX: R05.9 Cough, unspecified (principal)
CPT/HCPCS: 71046

== ENCOUNTER 2021-04-08 18:34 | Emergency (ER) | payer BC, SELFPAY ==
--- NOTE | ~2021-04-08 | CT_ITS ---
EXAMINATION: CT abdomen pelvis wo con DATE: 04/08/2021 20:14 INDICATION: Low back pain TECHNIQUE: Computed tomography (CT) of the abdomen and pelvis was performed without intravenous contr ast. The dose-length product (DLP) was 461.21 mGy-cm. Automated exposure control and iterative recons truction technique were employed. COMPARISON: None FINDINGS: The lung bases are clear. The heart size is normal. There is a 1.5 cm cyst of the right hep atic lobe. The spleen, pancreas, gallbladder, and adrenal glands are normal. The kidneys are unremark able. No stones are identified in the kidneys, ureters, or bladder. There is no hydronephrosis or hyd roureter. No pathologically enlarged abdominal or pelvic lymph nodes are identified. There is no free intraperitoneal gas or evidence of bowel obstruction. The appendix is normal. IMPRESSION: 1. No CT correlate for the patient's symptoms. Reviewed, dictated and finalized at location F. TESTER
[2021-04-08 18:35] VITALS: BP 116/58; PULSE 79; RESP 18; TEMP 36.3; O2SAT 100
--- NOTE | 2021-04-08 20:18 | ED.GENADULT ---
HPI - General Adult General Chief complaint: Back Pain/Injury Stated complaint: LOWER BACK PAIN Time Seen by Provider: 04/08/21 19:51 Source: patient Mode of arrival: ambulatory Limitations: no limitations History of Present Illness HPI narrative: Patient is a 46-year-old male presenting with chief complaint of right low back pain that began 5 days ago and has increased and now radiates into his right groin. Patient reports he feels as if he has been going to the bathroom more frequently over the past few days. He denies fever, chills or known mechanism of injury. Patient reports he has been wearing a back support and applying heating pad. He reports that he was attempting to go to work today as he did not want to fall off but the pain made him come to the emergency department to be evaluated. Patient denies loss of bowel or bladder function or saddle paresthesias. He denies any direct traumas or injuries. Patient denies hematuria, fever, chills, nausea, vomiting, syncope, chest pain, shortness of breath or neurological deficits. He denies history of kidney stones. Related Data Allergies Allergy/AdvReac Type Severity Reaction Status Date / Time No Known Allergies Allergy Verified 04/08/21 19:54 Review of Systems Review of Systems: CONSTITUTIONAL: Denies fever, chills, or sweats. EYES: Denies visual changes, redness, or discharge. ENT: Denies rhinorrhea, congestion, sore throat, or otalgia. CARDIOVASCULAR: Denies chest pain, palpitations, or edema. RESPIRATORY: Denies cough or dyspnea. GASTROINTESTINAL: Denies abdominal pain, nausea, vomiting, or diarrhea. GENITOURINARY: Denies dysuria or hematuria. SKIN: Denies rash or itching. MUSCULOSKELETAL: Reports back pain, denies joint pain, or myalgia. NEUROLOGIC: Denies headache, numbness, dizziness, or weakness. PSYCHIATRIC: Denies anxiety or depression. [facility]LY [facility] Past Medical History Medical History Allergies Exposure to COVID-19 virus No significant medical problems Surgical History Surgical History H/O sinus surgery No pertinent past surgical history Family History Family History Mother Hypertension Father , No problems noted. Grandparent No problems noted. Grandparent No problems noted. Grandparent , Cancer No problems noted. Grandparent No problems noted. Sibling Diabetes mellitus Social History Social History Smoking status: Never smoker Tobacco type: cigars Additional smoking assessment comments: smokes cigars only on weekends Alcohol intake: current Alcohol use details: Tequila on weekends Substance use: never Gender identity (if verbalized by the patient): Male Spiritual care concerns: No Exam Narrative: GENERAL: Well-appearing, well-nourished, appears uncomfortable but not toxic. HEAD: Normocephalic, atraumatic. EYES: PERRLA and EOMI. CHEST: Clear to auscultation. No respiratory distress. No wheezes rales or rhonchi HEART: Regular rate and rhythm. ABDOMEN: Soft, nontender, nondistended, normal active bowel sounds. BACK: Pain with percussion of right low back. Discomfort with flexion and rotation. EXTREMITIES: Normal range of motion. No edema. SKIN: Warm, dry, no rash. NEURO: No focal deficits. Alert and oriented x3.Gait steady. PSYCH: Normal mood and affect. Course Vital Signs Vital signs: Vital Signs Temperature 97.3 F L 04/08/21 18:35 Pulse Rate 79 04/08/21 18:35 Respiratory Rate 18 04/08/21 18:35 Blood Pressure 116/58 L 04/08/21 18:35 Pulse Oximetry 100 04/08/21 18:35 Temperature 97.3 F L 04/08/21 18:35 Pulse Rate 79 04/08/21 18:35 Respiratory Rate 18 04/08/21 18:35 Blood Pressure 116/58
[2021-04-08] MEDS: HYDROcodone/acetaminophen (*CRX) 5-325 MG TABLET 1 TAB PO (20:32)
[2021-04-08 20:56] LABS: Add Urine Microscopic? YES; Appearance Urine Clear (Clear); Bilirubin Urine 2+ (Negative); Blood Urine Negative (Negative); Color Urine Amber (Yellow); Glucose Urine UA Negative (Negative); Ketones Urine Negative (Negative); Leukocyte Esterase Ur Trace LEU/UL (Negative); Mucus Urine Heavy /lpf; Nitrate Urine Negative (Negative); Protein Urine 1+ mg/dL (Negative); RBC Urine 0-2 /hpf (0-2); Specific Grav Ur 1.034 (1.001-1.035); Squamous Epithelial Cell Urine Rare /hpf (Few); WBC Urine 0-3 /hpf
[2021-04-08] MEDS: KETOROLAC (*BKC) 60 MG/2 ML VIAL IM (21:29)
[2021-04-08 21:35] VITALS: BP 124/84; PULSE 80; RESP 18; O2SAT 98
== END 2021-04-08 21:35 | disposition home or self-care (01) ==
PROVIDERS: Physician Assistant; Emergency Provider Emergency Medicine
DX: S39.012A Strain of muscle, fascia and tendon of lower back, initial encounter (principal); F17.290 Nicotine dependence, other tobacco product, uncomplicated; X58.XXXA Exposure to other specified factors, initial encounter
CPT/HCPCS: 74176; 81001; 96372; 99284; A9270; J1885

== ENCOUNTER 2021-04-16 11:47 | Outpatient (CLI) | payer BC, SELFPAY ==
--- NOTE | ~2021-04-16 | XR_ITS ---
XR lumbar spine 2-3V DATE: 04/16/2021 12:07 INDICATION: Right low back pain TECHNIQUE: AP, lateral, coned lateral lumbosacral views COMPARISON: None FINDINGS: There is mild L1 anterior wedge compression fracture deformity of uncertain age. There is mild retrolisthesis at L5-S1. There is minimal degenerative spurring of the lumbar spine. The lumbar pedicles are intact. No bone destruction is evident. The sacroiliac joints are intact. IMPRESSION: Mild L1 anterior wedge compression fracture deformity of uncertain age Mild retrolisthesis at L5-S1 Mild degenerative spurring Reviewed, dictated and finalized at location A. ORY HAND
== END 2021-04-16 11:48 | disposition home or self-care (01) ==
LOC: ANHIMG 11:52
PROVIDERS: PCP Family Medicine; Visit Provider Family Medicine
DX: M54.9 Dorsalgia, unspecified (principal)
CPT/HCPCS: 72100

== ENCOUNTER 2022-05-08 12:10 | Emergency (ER) | payer BC, SELFPAY ==
--- NOTE | ~2022-05-08 | CT_ITS ---
EXAMINATION: CT abdomen pelvis w con DATE: 05/08/2022 17:17 INDICATION: epigastric pain, N/V TECHNIQUE: Computed tomography (CT) of the abdomen and pelvis was performed with 100 mL Omnipaque-350 intravenous contrast. Automated exposure control and iterative reconstruction technique were employe d. The dose-length product was 424.61 mGy-cm. COMPARISON: 04/08/2021. FINDINGS: Lower thorax: Right lower lobe granuloma. Small hiatal hernia. Liver: Focal fat deposition adjacent to the ligamentum teres. Right liver lobe tip cyst. Biliary/Gallbladder: Gallbladder is normal. No bile duct dilation. Pancreas: No mass or duct dilation. Spleen: Normal. Adrenals:No mass. Kidneys: No mass, stone, or hydronephrosis. GI tract: Mild distal esophageal and gastric wall edema. No small or large bowel dilation. Normal fabiola endix. Mesentery/Peritoneum: No ascites, mass, or free air. Retroperitoneum: No mass. Pelvis: Decompressed urinary bladder. Prostatomegaly.. Soft Tissues: Soft tissues and body wall unremarkable. Bones: No acute osseous finding. IMPRESSION: Esophagitis/gastritis. Otherwise, no acute abdominopelvic process detected. Reviewed, dictated and finalized at location K. ING MACHINE TENDER DECORATIVE
[2022-05-08 12:17] VITALS: BP 129/81; PULSE 89; RESP 17; TEMP 36.8; O2SAT 95
[2022-05-08 12:48] LABS: Basophils Percent Auto 0.4 % (0.2-1.2); Eosinophils Absolute Auto 0.3 K/mm3 (0-0.3); Eosinophils Percent Auto 4.1 % (0-4.4); Hematocrit 47.5 % (42.0-52.0); Hemoglobin 15.9 g/dL (14.0-18.0); Immature Granulocyte Absolute 0.02 K/mm3 (0.00-0.031); Immature Granulocyte Percent A 0.3 % (0-0.5); Lymphocytes Absolute Auto 1.17 K/mm3 (0.9-3.2); Mean Corpuscular HGB Conc 33.5 g/dl (32-36); Mean Corpuscular Hemoglobin 32.6 pg (26-34); Mean Corpuscular Volume 97.5 fl (80-100); Mean Platelet Volume 11.2 fl (7.4-10.4); Monocytes Absolute Auto 0.8 K/mm3 (0.1-0.6); Monocytes Percent Auto 12.1 % (2.6-8.5); Neutrophils Absolute Auto 4.6 K/mm3 (1.3-6.7); Neutrophils Percent Auto 66.1 % (45.5-73.1); Platelet Count Result 222 k/mm3 (150-375); Red Blood Count 4.87 M/mm3 (4.6-6.20); Red Cell Distribution Width 11.7 % (11.5-14.5); White Blood Count 6.9 K/mm3 (4.5-10.0)
[2022-05-08 12:57] LABS: Alanine Aminotransferase 24 U/L (6-50); Albumin Level 4.8 g/dL (3.5-5.1); Alkaline Phosphatase 69 U/L (38-126); Anion Gap 6 mmol/L (8-16); Aspartate Amino Transferase 29 U/L (17-59); Bilirubin,Total 1.4 mg/dL (0.2-1.3); Blood Urea Nitrogen 19 mg/dL (9-20); Calcium 8.8 mg/dL (8.4-10.2); Carbon Dioxide 29 mmol/L (22-30); Chloride 103 mmol/L (98-107); Estimated CRCL calculation 86 ml/min; Estimated Glomerular Filt Rate > 60; Glucose 97 mg/dL (65-110); Lipase 23 U/L (23-300); Potassium 4.4 mmol/L (3.4-5.0); Sodium 138 mmol/L (137-145)
--- NOTE | 2022-05-08 16:24 | ECG_ITS ---
Measurements Intervals [place] Rate: 76 P: 75 [place]: 164 QRS: 79 QRSD: 85 T: 62 QT: 353 QTc: 397 Interpretive Statements SINUS RHYTHM NORMAL ECG COMPARED TO ECG 12/27/2020 09:07:04 NO SIGNIFICANT CHANGES Electronically Signed On 05-09-2022 12:37:01 WORD PROCESSING MACHINE OPERATOR by Rao Kam M.D.
--- NOTE | 2022-05-08 16:27 | ED.NAVMDI ---
HPI - Nausea/Vomiting/Diarrhea General Chief complaint: Nausea/Vomiting/Diarrhea Stated complaint: vomting since monday Time Seen by Provider: 05/08/22 16:09 Source: patient Mode of arrival: ambulatory Limitations: no limitations History of Present Illness HPI Narrative: Patient is a 47-year-old male who presents the ED with report of epigastric abdominal pain. Patient reports having pain since Monday. He states the pain was fairly constant on Monday, improved slightly yesterday, but became worse again today. He also reports having nausea and vomiting anytime he tries to eat or drink anything. He did try Mylanta, which improved his pain slightly. He also reports having recent cough and sinus issues for which he sees Dr. Muñoz. He denies any diarrhea, melena, rectal bleeding, fevers, hematemesis, urinary symptoms. Related Data Allergies Allergy/AdvReac Type Severity Reaction Status Date / Time No Known Allergies Allergy Verified 04/04/22 12:56 Review of Systems Review of Systems: CONSTITUTIONAL: Denies fever, chills, or sweats. ENT: See HPI. CARDIOVASCULAR: Denies chest pain. RESPIRATORY: See HPI. GASTROINTESTINAL: See HPI. All systems reviewed & are unremarkable except as noted in HPI and below PMFSH Past Medical History Medical History Allergies Exposure to COVID-19 virus No significant medical problems Surgical History Surgical History H/O sinus surgery No pertinent past surgical history Family History Family History Mother Hypertension Father , No problems noted. Grandparent No problems noted. Grandparent No problems noted. Grandparent , Cancer No problems noted. Grandparent No problems noted. Sibling Diabetes mellitus Social History Social History Smoking status: Never smoker Tobacco type: cigars Additional smoking assessment comments: smokes cigars only on weekends Alcohol intake: current Alcohol use details: Tequila on weekends Substance use: never Lack of Transportation: No Lack of Food: Never True Current Housing: I Have Housing Concerned About Future Housing: No Difficulty Paying Gas/Electric Bills: No Difficulty Paying for Meds: No Currently Unemployed: No Education: High School Diploma/GED Difficulty w/ Childcare or Family Care: No Living arrangements: with family Occupation/Education: occupation Gender identity (if verbalized by the patient): Male Spiritual care concerns: No Exam Narrative: GENERAL: Well appearing, well-nourished, non-toxic, in no acute distress. HEAD: Normocephalic, atraumatic. NECK: Supple. No adenopathy, no masses. RESPIRATORY: Airway patent, respirations nonlabored. Clear to auscultation bilaterally, no rales, rhonchi, wheezing. CARDIOVASCULAR: Regular rate and rhythm without murmurs, rubs, or gallops. Peripheral pulses 2+ and equal bilaterally. ABDOMINAL: Soft, mild tenderness in epigastric region, no other focal tenderness, no rebound, nondistended, no hepatosplenomegaly. Normoactive BS. MUSCULOSKELETAL: Moves all extremities. Strength/ROM intact without gross deformities. SKIN: Warm, dry, normal color. No rashes. NEURO: A&O X3. Speech clear. Cranial nerves II-XII grossly intact. Steady gait. No ataxic movements. PSYCHIATRIC: Appropriate mood and affect. Normal interaction. Course Vital Signs Vital signs: Vital Signs Temperature 98.2 F 05/08/22 12:17 Pulse Rate 89 05/08/22 12:17 Respiratory Rate 17 05/08/22 12:17 Blood Pressure 129/81 05/08/22 12:17 Pulse Oximetry 95 05/08/22 12:17 Oxygen Delivery Room Air 05/08/22 12:17 Temperature 98.2 F 05/08/22 12:17 Puls
[2022-05-08] MEDS: BELLADONNA ALK/PHENOB ELIX 10 ML, MAG HYDROX/ALUMINUM HYD/SIMETH 30 ML, LIDOCAINE HCL 2... PO (16:41)
[2022-05-08] MEDS: SODIUM CHLORIDE 0.9% IV 1,000 ML 999 ML IV CONT ×2 (16:41→17:23)
[2022-05-08] MEDS: ONDANSETRON INJ 4 MG/2 ML VIAL IV PUSH (16:42)
[2022-05-08 16:45] LABS: Appearance Urine Clear (Clear); Bilirubin Urine 2+ (Negative); Blood Urine Trace-lysed (Negative); Color Urine Yellow (Yellow); Glucose Urine UA Negative (Negative); Ketones Urine 4+ mg/dL (Negative); Leukocyte Esterase Ur Negative LEU/UL (Negative); Nitrate Urine Negative (Negative); Protein Urine 2+ mg/dL (Negative); Specific Grav Ur 1.025 (1.001-1.035); Urobilinogen Urine 0.2 mg/dL (<2.0)
[2022-05-08 16:48] LABS: Add Urine Microscopic? YES; Mucus Urine Heavy /lpf; RBC Urine 0-2 /hpf (0-2); Squamous Epithelial Cell Urine Rare /hpf (Few); WBC Urine 0-3 /hpf
[2022-05-08 17:19] LABS: Influenza A QL RT-PCR Negative (Negative); Influenza B QL RT-PCR Negative (Negative); SARS-CoV-2 RNA PCR Negative
[2022-05-08 18:14] VITALS: BP 126/77; PULSE 87; RESP 17; O2SAT 97
[2022-05-08] MEDS: PANTOPRAZOLE SODIUM IV 40 MG VIAL IV PUSH (18:24)
[2022-05-08 18:59] VITALS: BP 132/81; PULSE 83; RESP 16; O2SAT 98
== END 2022-05-08 19:03 | disposition home or self-care (01) ==
PROVIDERS: Emergency Medicine; Emergency Provider Physician Assistant; PCP Family Medicine
DX: K29.00 Acute gastritis without bleeding (principal); Z20.822 Contact with and (suspected) exposure to COVID-19; F17.290 Nicotine dependence, other tobacco product, uncomplicated
CPT/HCPCS: 36415; 74177; 80053; 81001; 83690; 85025; 87636; 93005; 96361; 96374; 96375; 99284; A9270; C9113; J2405; J7030; Q9967

== ENCOUNTER 2022-05-30 01:23 | Day surgery (SDC) | payer BC, SELFPAY ==
[2022-05-19 12:58] VITALS: BMI 25.0
[2022-05-30 06:58] VITALS: BP 115/72; PULSE 79; RESP 18; TEMP 36.2; O2SAT 100; BMI 23.3
[2022-05-30] MEDS: LACTATED RINGERS 1,000 ML 150 ML IV CONT (07:10)
--- NOTE | 2022-05-30 07:28 | WPDANESEPPF ---
Anes - Initial Pre Proc Eval Procedure: Operation Date: 05/30/22 08:00 Proposed Procedures p Screening Colonoscopy - Laz Mueller MD Date/Time: 05/30/22 07:28 Surgeon: Laz Mueller MD Pre Op Diagnosis: neoplasm screening Patient Data Age: 47 Gender: M Height: 1.91 m Weight: 84.5 kg Last Vital Signs Temp 36.2 C L 05/30/22 06:58 Pulse 79 05/30/22 06:58 Resp 18 05/30/22 06:58 BP 115/72 05/30/22 06:58 Pulse Ox 100 05/30/22 06:58 O2 Del Method Room Air 05/30/22 06:58 Allergies Allergy/AdvReac Type Severity Reaction Status Date / Time No Known Allergies Allergy Verified 05/30/22 06:56 Home Medications Medication Instructions Recorded Confirmed Type albuterol sulfate 90 mcg/actuation 1 puff inhalation Q4H PRN 02/25/21 05/30/22 Rx aerosol inhaler shortness of breath or wheezing #6.7 grams budesonide 0.25 mg/2 mL suspension See Rx Instructions .Route 07/07/21 05/30/22 Rx for nebulization .COMPLEX #360 mL omeprazole 20 mg capsule,delayed 20 mg PO DAILY #30 caps 05/08/22 05/30/22 Rx release Patient hx anesthesia problems: none Family hx anesthesia problems: none Results Review: All pre-operative results and documents have been reviewed as part of the pre-operative evaluation. [facility] Past Medical History Medical History Allergies Exposure to COVID-19 virus No significant medical problems Surgical History Surgical History H/O sinus surgery No pertinent past surgical history Family History Family History Mother Hypertension Father , No problems noted. Grandparent No problems noted. Grandparent No problems noted. Grandparent , Cancer No problems noted. Grandparent No problems noted. Sibling Diabetes mellitus Social History Social History Smoking status: Former smoker Tobacco type: cigars Additional smoking assessment comments: smokes cigars only on weekends Alcohol intake: current Alcohol use details: occasional Substance use: never Substance use type: does not use Lack of Transportation: No Lack of Food: Never True Current Housing: I Have Housing Concerned About Future Housing: No Difficulty Paying Gas/Electric Bills: No Difficulty Paying for Meds: No Currently Unemployed: No Education: High School Diploma/GED Difficulty w/ Childcare or Family Care: No Living arrangements: with family Occupation/Education: occupation Gender identity (if verbalized by the patient): Male Spiritual care concerns: No Anes - Eval Final PreProcedure Day of Procedure 05/30/22 07:28 Patient weight: normal Heart: regular rate and rhythm Lungs: clear to auscultation Airway: Mallampati scale class II Neurological: alert and oriented Last oral intake: >/= 8 hours ASA classification: II Emergent: no Anesthetic plan: proceed Anesthesia type and monitoring: general GIVS and standard monitoring Results Review: All pre-operative results and documents have been reviewed as part of the pre-operative evaluation. Informed Consent: The patient's anesthetic plan and its attendant risks and benefits were discussed with the patient/family/POA. Questions were solicited and answers provided to the satisfaction of the patient/family/POA.
--- NOTE | 2022-05-30 07:53 | PM.HPGS ---
History of Present Illness History of Present Illness Consent: Risks, benefits, and alternatives have been discussed and questions answered. Patient agrees to proceed with procedure. Chief complaint: neoplasm screening Narrative: Sly Corona Jr. is a 47 year old male here for first screening colonoscopy Review of Systems Constitutional: Constitutional: Denies headache(s) and Denies weakness Eyes: Eyes: Denies blurry vision ENT: Reports Normal hearing present, Denies headache(s) and Denies neck pain Cardiovascular: Cardiovascular: Denies chest pain and Denies dyspnea Respiratory: Respiratory: Denies dyspnea Gastrointestinal: Gastrointestinal: Reports no additional gastrointestinal complaints Genitourinary: Genitourinary: Denies dysuria Musculoskeletal: Musculoskeletal: Denies neck pain Integumentary/Breasts: Skin/Breast: Denies dry skin Neurologic: Reports Normal hearing present, Denies headache(s) and Denies weakness Psychiatric: Psychiatric: Denies anxiety Endocrine: Endocrine: Denies change in body appearance Hematologic/Lymphatic: Hematologic/Lymphatic: Denies easy bleeding Allergic/Immunologic: Allergic/Immunologic: Denies urticaria PMFSH Past Medical History Medical History (Updated 05/30/22 @ 07:53 by Laz Mueller MD) Allergies Colon cancer screening Exposure to COVID-19 virus No significant medical problems Surgical History Surgical History H/O sinus surgery No pertinent past surgical history Family History Family History Mother Hypertension Father , No problems noted. Grandparent No problems noted. Grandparent No problems noted. Grandparent , Cancer No problems noted. Grandparent No problems noted. Sibling Diabetes mellitus Social History Social History Smoking status: Former smoker Tobacco type: cigars Additional smoking assessment comments: smokes cigars only on weekends Alcohol intake: current Alcohol use details: occasional Substance use: never Substance use type: does not use Lack of Transportation: No Lack of Food: Never True Current Housing: I Have Housing Concerned About Future Housing: No Difficulty Paying Gas/Electric Bills: No Difficulty Paying for Meds: No Currently Unemployed: No Education: High School Diploma/GED Difficulty w/ Childcare or Family Care: No Living arrangements: with family Occupation/Education: occupation Gender identity (if verbalized by the patient): Male Spiritual care concerns: No Meds Home Medications and Allergies Home Medications Medication Instructions Recorded Confirmed Type albuterol sulfate 90 mcg/actuation 1 puff inhalation Q4H PRN 02/25/21 05/30/22 Rx aerosol inhaler shortness of breath or wheezing #6.7 grams budesonide 0.25 mg/2 mL suspension See Rx Instructions .Route 07/07/21 05/30/22 Rx for nebulization .COMPLEX #360 mL omeprazole 20 mg capsule,delayed 20 mg PO DAILY #30 caps 05/08/22 05/30/22 Rx release Allergies Allergy/AdvReac Type Severity Reaction Status Date / Time No Known Allergies Allergy Verified 05/30/22 06:56 Vital Signs Vital Signs - 24 hr 05/30/22 06:58 Temperature 97.1 F L Pulse Rate 79 Respiratory Rate 18 Blood Pressure 115/72 Pulse Oximetry 100 Oxygen Delivery Room Air Exam Const: General: comfortable and no acute distress HENMT: Face/Nose/Sinus: Normal nares present Eyes: General: appearance normal, both eyes and all related structures Neck: Neck: no JVD Resp: Auscultation: clear to auscultation bilaterally Cardio: Rate: regular rate Rhythm: regular rhythm GI: Inspection: non-distended GI Palp: Yes Soft to palpation Skin: General s
[2022-05-30 08:12] VITALS: BP 101/71; PULSE 85; RESP 25; O2SAT 98
[2022-05-30 08:22] VITALS: BP 107/76; PULSE 75; RESP 19; O2SAT 100
[2022-05-30 08:32] VITALS: BP 121/71; PULSE 72; RESP 21; O2SAT 97
== END 2022-05-30 08:36 | disposition home or self-care (01) ==
PROVIDERS: PCP Family Medicine; Visit Provider Internal Medicine Gastroenterology
PROC: 0DJD8ZZ Inspection of Lower Intestinal Tract, Via Natural or Artificial Opening Endoscopic (ICD-10-PCS; CPT 45378; principal; 2022-05-30 08:00)
DX: Z12.11 Encounter for screening for malignant neoplasm of colon (principal); F17.290 Nicotine dependence, other tobacco product, uncomplicated
CPT/HCPCS: 45378; J2704; J7120

== ENCOUNTER 2024-10-09 09:38 | Emergency (ER) | payer BC, SELFPAY ==
--- NOTE | ~2024-10-09 | XR_ITS ---
EXAMINATION: XR chest 2V 10/09/2024 10:57 INDICATION: Lightheadedness and dizziness PROCEDURE: 2 view chest COMPARISON: Comparison to multiple prior studies sequentially, with oldest reviewed study dated 10/06/2020. FINDINGS: The lungs are clear. The cardiomediastinal silhouette is within normal limits. There are no pleural effusions. There is no pneumothorax suspected. IMPRESSION: 1: NO ACUTE CARDIOPULMONARY DISEASE. Reviewed, dictated and finalized at location A.
--- OUTSIDE RECORDS SUMMARY | 2024-10-09 09:46 | XMS_ITS | Clinical Summary ---
Author Organization [facility] Address [address] [place] [address] Care Team Providers Care Sales Engagement Manager Name Role Phone Unavailable Primary Care Provider Unavailabl e Source Comments [facility] Shared Performance,non-owned Affiliates and Associated Physician Practices is amultiple site organization consisting of ambulatory clinics and hospital sitesin [place], [place], [place] and [place]. This disclosure is being madepursuant to the Care Everywhere program and may not contain all information available regarding this patient. Last updated 17.[facility] Shared Performance Active Problems Problem Noted Date Diagnosed Date Closed fracture of sternum 05/06/2013 Contusion of lung 05/06/2013 Pneumothorax 05/06/2013 Overview (06/19/2017): Very small, incidentally found on CT. Cervicalgia 05/06/2013 Social History Tobacco Use Types Packs/Day Years Used Date Smoking Tobacco: Never Alcohol Use Standard Drinks/Week Comments Yes 0 (1 standard drink = 0.6 oz pur e alcohol) Sex and Gender Information Value Date Recorded Sex Assigned at Not on file Legal Sex Male 6:35 PM ACCT EXEC Gender Identity Not on file Sexual Orientation Not on file Last Filed Vital Signs Vital Sign Reading Time Taken Comments Blood Pressure 118/76 07/09/2013 2:00 PM CDT Pulse 79 07/09/2013 2:00 PM CDT Temperature 36.9 C (98.4 F) 07/09/2013 2:00 PM CDT Respiratory Rate 18 05/06/2013 9:36 AM ACCT EXEC Oxygen Saturation 98% 05/06/2013 9:36 AM ACCT EXEC Inhaled Oxygen Concentration - - Weight 84.5 kg (186 lb 3.2 oz) 07/09/2013 2:00 P M CDT Height 193 cm (6' 4) 05/05/2013 12:16 AM ACCT EXEC Body Mass Index 22.66 05/05/2013 12:16 AM ACCT EXEC Plan of Treatment Health Maintenance Due Date Last Done Comments COLOGUARD (AGES 45-75) - COL ON CA SCREENING 1973 COLON MONITORING 1973 COLONOSCOPY - COLON CA SCREENING 1973 CT COLONOGRAPHY - COLON CA SCREENING 1973 Colorectal Cancer Screening 1973 FIT - COLON CA SCREENING 1973 FLEX SIG - COLON CA SCREENING 1973 LIPID TESTING 1973 HIV SCREENING 1988 HEPATITIS C SCREENING 04/02/1991 DTAP/TDAP/TD VACCINES (1 - Tdap) 1992 HEPATITIS B VACCINE (1 of 3 - 19+ 3-dose series) 1992 PNEUMOCOCCAL VACCINE 50+ (1 of 1 - PCV) 2023 ZOSTER VACCINE (1 of 2) 2023 COVID-19 VACCINE (1 - 2023-2 5 season) 2023 DEPRESSION SCREENING 03/20/2024 INFLUENZA VACCINE (#1) 2024 HIB VACCINE Aged Out No longer eligi ble based on patient's age to complete this topic HPV VACCINE Aged Out No longer eligi ble based on patient's age to complete this topic MENINGOCOCCAL (Group B) VACC INE SHARED DECISION-MAKING Aged Out No longer eligibl e based on patient's age to complete this topic MENINGOCOCCAL GROUPS A/C/Y/W VACCINE Aged Out No longer eligible b ased on patient's age to complete this topic
--- OUTSIDE RECORDS SUMMARY | 2024-10-09 09:46 | XMS_ITS | Encounter Summary ---
Author Organization [facility] Address [address] [place] [address] Care Team Providers Care Production Machine Tender Name Role Phone Summer Acosta Primary Care Pr ovider Reason for Visit * Reason Comments Numbness Feet numbness from t he ankle area down, had an episode last night that last a couple of hours but then went away, and then he went to work and it happened again and he was dizzy, and now his head is tight, Encounter Details Date Type Department Care Team (Late st Contact Info) Description 10/09/2024 9:15 AM CDT Office Visit [facility] at [address] [phone] Swati Garcia NP [address] [place] [address] [address] [place] [address] Numbness and tingling of both feet (Primary Dx); Numbness in both legs; Lightheadedness Social History Tobacco Use Types Packs/Day Years Used Date Smoking Tobacco: Never Assessed Sex and Gender Information Value Date Recorded Sex Assigned at Not on file 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 Gender Identity Not on file Sexual Orientation Not on file documented as of this encounter Last Filed Vital Signs Vital Sign Reading Time Taken Comments Blood Pressure 113/73 10/09/2024 9:09 AM CDT Pulse 66 10/09/2024 9:09 AM CDT Temperature 36.3 C (97.3 F) 10/09/2024 9:09 AM CDT Respiratory Rate 18 10/09/2024 9:09 AM CDT Oxygen Saturation 99% 10/09/2024 9:09 AM CDT Inhaled Oxygen Concentration - - Weight 88.2 kg (194 lb 6.4 oz) 10/09/2024 9:09 A M CDT Height 190.5 cm (6' 3) 10/09/2024 9:09 AM CDT Body Mass Index 24.3 10/09/2024 9:09 AM CDT documented in this encounter Plan of Treatment Not on file documented as of this encounter Visit Diagnoses Diagnosis Numbness and tingling of both feet- Primary Numbness in both legs Disturbance of skin sensation Lightheadedness Dizziness and giddiness documented in this encounter Care Teams Production Machine Tender Relationship Specialty Start Date End Date Summer Acosta PA [address] [place] [id number] PCP - General Physician Charter Representative 10/09/24 documented as of this encounter
--- OUTSIDE RECORDS SUMMARY | 2024-10-09 09:46 | XMS_ITS | Clinical Summary ---
Author Organization [facility] [address] Address [address] [place] [address] Care Team Providers Care Microbiology Technologist Name Role Phone Summer Acosta Primary Care Pr ovider Allergies No known active allergies Medications albuterol HFA (PROVENTIL HFA,VENTOLIN HFA,PROAIR HFA) 90 mcg/actuation inhaler 05/22/2023 Active amoxicillin-cla vulanate (AUGMENTIN) 875-125 mg per tablet Take 1 tablet by mouth 2 (two) times a day 05/22/2023 Active budesonide (PULMICORT) 0.25 mg/2 mL nebulizer solution 07/14/2023 Active budesonide-form oteroL (SYMBICORT) 80-4.5 mcg/actuation inhaler Inhale 1 puff 2 (two) times a day 06/08/2023 Active Wixela Inhub 100-50 mcg/dose diskus inhaler TAKE 1 PUFF BY MOUTH EVERY 12 HOURS , RINSE MOUTH AFTER USE 05/12/2023 Active methylPREDNISol one (MEDROL DOSEPACK) 4 mg Dosepack TAKE 6 TABLETS ON DAY 1 DIRECTED ON PACKAGE AND DECREASE BY 1 TAB EACH DAY FOR A TOTAL OF 6 DAYS 06/13/2023 Active Active Problems Problem Noted Date Diagnosed Date Cervicalgia 05/06/2013 Closed fracture of sternum 05/06/2013 Contusion of lung 05/06/2013 Pneumothorax 05/06/2013 Overview (07/27/2023): Very small, incidentally found on CT. 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 Gender Identity Not on file Sexual Orientation Not on file Obstetrics History Last Filed Vital Signs Vital Sign Reading [...] Mass Index 24.3 10/09/2024 9:09 AM CDT Plan of Treatment Health Maintenance Due Date Last Done Comments Colon Cancer Screening-Colonoscopy 1973 Depression Screening 1973 Hepatitis C Screening 1973 Prostate Cancer Screening-PSA 1973 DTaP/Tdap/Td Vaccine (4 - Tdap) 1984 07/24/1981, 12/07/1979, 07/14/1978 Hepatitis B Screening 1991 Regular Well Visit/Exam 18-64 1991 Zoster Vaccine (1 of 2) 2023 Influenza Vaccine (#1) 2024 Pneumococcal vaccine <65 Aged Out No longer eligible based on patient's age to complete this topic Insurance [employer] OOS Care Teams Microbiology Technologist Relationship Specialty Start Date End Date Summer Acosta PA [address] [place] [address] PCP - General Physician Stamp Classifier 10/09/24
--- OUTSIDE RECORDS SUMMARY | 2024-10-09 09:46 | XMS_ITS | Referral Summary ---
Author Organization [facility] [address] Address [address] [place] [id number] Care Team Providers Care Production Control Expert Name Role Phone Summer Acosta Primary Care Pr ovider Encounters Date Type Department Care Team Description 10/09/2024 9:15 AM CDT Office Visit [facility] at [address] [phone] Swati Garcia NP Numbness and tingling of both feet (Primary Dx); Numbness in both legs; Lightheadedness from Last 3 Months Allergies No known active allergies Medications albuterol [...] (07/27/2023): Very small, incidentally found on CT. 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
--- OUTSIDE RECORDS SUMMARY | 2024-10-09 09:46 | XMS_ITS | Clinical Summary ---
Author Organization [facility] Address [address] [place] [id number] Care Team Providers Care Receiver Name Role Phone Unavailable Primary Care Provider Unavailabl e Allergies No known active allergies Social History Tobacco Use Types Packs/Day Years Used Date Smoking Tobacco: Some Days Cigars Smokeless Tobacco: Never Tobacco Cessation:Ready to Q uit: No; Counseling Given: Yes Alcohol Use Standard Drinks/Week Comments No 0 (1 standard drink = 0.6 oz pur e alcohol) Sex and Gender Information Value Date Recorded Sex Assigned at Not on file Legal Sex Male 5:45 PM CDT Gender Identity Not on file Sexual Orientation Not on file Last Filed Vital Signs Vital Sign Reading Time Taken Comments Blood Pressure 129/64 12/06/2018 6:40 PM CDT Pulse 70 12/06/2018 6:40 PM CDT Temperature 36.6 C (97.9 F) 12/06/2018 6:40 PM CDT Respiratory Rate 18 12/06/2018 6:40 PM CDT Oxygen Saturation 96% 12/06/2018 6:40 PM CDT Inhaled Oxygen Concentration - - Weight 81 kg (178 lb 9.6 oz) 12/06/2018 6:40 PM CDT Height 190.5 cm (6' 3) 12/06/2018 6:40 PM CDT Body Mass Index 22.32 12/06/2018 6:40 PM CDT Plan of Treatment Health Maintenance Due Date Last Done Comments Colorectal Cancer Screening Colonoscopy (10 Years) 1973 Annual Physical 1976 Hepatitis C 1991 DTaP, Tdap and Td Vaccines ( 1 - Tdap) 1992 Hepatitis B Vaccines (1 of 3 - 19+ 3-dose series) 1992 Pneumococcal Vaccine: 50+ Ye ars (1 of 1 - PCV) 2023 Zoster Vaccines (1 of 2) 2023 COVID-19 Vaccine (2023-2 5 season) 2023 Meningococcal B Vaccine Aged Out No l onger eligible based on patient's age to complete this topic Meningococcal Vaccine Aged Out No elroy mahnaz eligible based on patient's age to complete this topic RSV Immunizations Under 20 Months Aged Out No longer eligible based on patient's age to complete this topic
[2024-10-09 09:49] VITALS: BP 113/61; PULSE 110; RESP 16; TEMP 36.6; O2SAT 100
--- NOTE | 2024-10-09 09:50 | ECG_ITS ---
Test Date: 2024-10-09 10:06:31 Measurements Intervals [place] Rate: 65 P: 61 MO: 198 QRS: 66 QRSD: 90 T: 37 QT: 372 QTc: 387 Interpretive Statements SINUS RHYTHM POSSIBLE RIGHT VENTRICULAR CONDUCTION DELAY [RSR (QR) IN V1/V2] ST SEGMENT ELEVATION, EARLY REPOLARIZATION, PERICARDITIS VERSUS INJURY PATTERN ABNORMAL ECG No previous ECG available for comparison Electronically Signed On 10-09-2024 10:10:54 CDT by Leif Gleason M.D.
[2024-10-09 10:24] LABS: Hematocrit 41.6 % (42.0-52.0); Hemoglobin 14.2 g/dL (14.0-18.0); Immature Granulocyte Percent A 0.3 % (0-0.5); Lymphocytes Absolute Auto 1.31 K/mm3 (0.9-3.2); Mean Corpuscular HGB Conc 34.1 g/dl (32-36); Mean Corpuscular Hemoglobin 32.9 pg (26-34); Mean Corpuscular Volume 96.5 fl (80-100); Nucleated Red Blood Cells Absolute Auto 0.000 K/mm3 (0.0-0.012); Nucleated Red Blood Cells Perc 0.0 % (0.0-0.2); Platelet Count Result 191 k/mm3 (150-375); Red Blood Count 4.31 M/mm3 (4.6-6.20); White Blood Count 3.2 K/mm3 (4.5-10.0)
[2024-10-09 10:42] LABS: Alanine Aminotransferase 42 U/L (6-50); Albumin Level 4.5 g/dL (3.5-5.1); Alkaline Phosphatase 49 U/L (38-126); Anion Gap 7 mmol/L (4-12); Aspartate Amino Transferase 45 U/L (17-59); Bilirubin,Total 1.4 mg/dL (0.2-1.3); Blood Urea Nitrogen 16 mg/dL (9-20); Calcium 9.5 mg/dL (8.4-10.2); Carbon Dioxide 22 mmol/L (22-30); Chloride 108 mmol/L (98-107); Estimated CRCL calculation 102 ml/min; Estimated Glomerular Filt Rate > 60; Glucose 93 mg/dL (65-110); Potassium 4.3 mmol/L (3.4-5.0); Sodium 137 mmol/L (137-145); Total Protein 7.8 g/dL (6.3-8.2)
[2024-10-09 12:17] VITALS: BP 119/72; PULSE 65; TEMP 36.6; O2SAT 100
--- NOTE | 2024-10-09 12:58 | ED_ITS ---
HPI - General Adult General Chief complaint: Unspecified <Liliana Rainey APRN - Last Filed: 10/09/24 13:00> Stated complaint: lightheaded, bilateral feet numb last night <Liliana Rainey APRN - Last Filed: 10/09/24 13:00> Time Seen by Provider: 10/09/24 12:45 <Liliana Rainey DIAGNOSTIC MEDICAL SONOGRAPHER - Last Filed: 10/09/24 13:00> Focused HPI: Patient is a 49-year-old male who presents to the ER with complaints light headedness, and numbness/tingling in his lower extremities that started last night. He denies any medical history but reports he has a history of asthma. Patient denies any chest pain, abdominal pain, headaches, or recent fevers. He reports he got bumped in the head by a forklift several days ago, but denies loss of conscious or visible villalba. GENERAL: Well-appearing, well-nourished, and in no acute distress. HEAD: Normocephalic, atraumatic. CHEST: Clear to auscultation. ?No respiratory distress. HEART: Regular rate and rhythm.? NEURO: ?Alert and oriented x3. Patient screened in triage and initial orders placed.? ?Additional care and disposition to be based upon?diagnostic testing and treatment. <Liliana Rainey DIAGNOSTIC MEDICAL SONOGRAPHER - Last Filed: 10/09/24 13:00> History of Present Illness HPI narrative: agree with MSE. Pt has intermittent numbness to his feet starting last night now resolved. Resolved earlier and briefly recurred and resolved again. Pt sent in from [facility]. <Bran Ching III, DO - Last Filed: 10/09/24 22:13> Related Data Allergies/adverse reactions: Allergies Allergy/AdvReac Type Severity Reaction Status Date / Time No Known Allergies Allergy Verified 10/09/24 09:41 <Liliana Rainey APRN - Last Filed: 10/09/24 13:00> Review of Systems 2 Review of Systems: All systems reviewed & are unremarkable except as noted in HPI and below <Bran Ching III, DO - Last Filed: 10/09/24 22:13> PMFSH Past Medical History Medical History: Medical History Colon cancer screening Allergies Exposure to COVID-19 virus No significant medical problems <Liliana Rainey DIAGNOSTIC MEDICAL SONOGRAPHER - Last Filed: 10/09/24 13:00> Surgical History Surgical History: Surgical History H/O sinus surgery No pertinent past surgical history <Liliana Rainey DIAGNOSTIC MEDICAL SONOGRAPHER - Last Filed: 10/09/24 13:00> Family History Family History: Family History Mother Hypertension Father , No problems noted. Grandparent No problems noted. Grandparent No problems noted. Grandparent , Cancer No problems noted. Grandparent No problems noted. Sibling Diabetes mellitus <Liliana Rainey, DIAGNOSTIC MEDICAL SONOGRAPHER - Last Filed: 10/09/24 13:00> Social History Social History: Social History Social History: Caffeine-green tea Smoking status: Former smoker Tobacco type: cigars Additional smoking assessment comments: smokes cigars only on weekends Alcohol intake: current Alcohol use details: occasional Substance use: never Substance use type: does not use Do You Feel Safe in your Home?: Yes Lack of Transportation: No Lack of Food: Never True Current Housing: I Have Housing Concerned About Future Housing: No Difficulty Paying Gas/Electric Bills: No Difficulty Paying for Meds: No Currently Unemployed: YES Education: High School Diploma/GED Difficulty w/ Childcare or Family Care: No Living arrangements: with family Occupation/Education: occupation Gender identity (if verbalized by the patient): Male Spiritual care concerns: No <Liliana Rainey, DIAGNOSTIC MEDICAL SONOGRAPHER - Last Filed: 10/09/24 13:00> Exam 2 Const: General: cooperative, healthy appearing and no acute distress < Bran Ching III, DO - Last Filed: 10/09/24 22:13> Limitations: no limitations and altered mental status <Bran Ching III, DO - Last Filed: 10/09/24 22:13> HENMT: Mouth: Yes Normal oral and palatal mucosa present <Bran Layo Ching III, DO - Last Filed: 10/09/24 22:13> Teeth and gingiva: dentition normal <Bran Layo Ching III, DO - Last Filed: 10/09/24 22:13> Resp: Effort & Inspection: normal respiratory effort and able to speak in complete sentences <Bran Layo Ching III, DO - Last Filed: 10/09/24 22:13> Auscultation: clear to auscultation bilaterally <Bran Layo Ching III, DO - Last Filed: 10/09/24 22:13> Cardio: Rate: regular rate <Bran Layo Ching III, DO - Last Filed: 10/09/24 22:13> Rhythm: regular rhythm <Bran Layo Ching III, DO - Last Filed: 10/09/24 22:13> GI: Inspection: normal to inspection <Bran Layo Ching III, DO - Last Filed: 10/09/24 22:13> GI Palp: Yes abdominal tenderness <Bran Layo Ching III, DO - Last Filed: 10/09/24 22:13> Skin: General skin exam: normal color and no rashes or lesions noted < Bran Layo Ching III, DO - Last Filed: 10/09/24 22:13> Neuro: General: patient oriented x3 <Bran Layo Ching III, DO - Last Filed: 10/09/24 22:13> Sensory Exam: normal sensation <Bran Layo Ching III, DO - Last Filed: 10/09/24 22:13> Extrem: General: normal to inspection and full ROM <Bran Layo Ching III, DO - Last Filed: 10/09/24 22:13> Psych: Appearance: grossly normal <Bran Layo Ching III, DO - Last Filed: 10/09/24 22:13> Mental Status: mental status grossly normal <Bran Layo Ching III, DO - Last Filed: 10/09/24 22:13> Speech and movement: Normal speech and movement present <Bran Layo Ching III, DO - Last Filed: 10/09/24 22:13> Attitude: cooperative <Bran Layo Ching III, DO - Last Filed: 10/09/24 22:13> Thought content: Yes Normal thought content present <Bran Vasques Ching III, DO - Last Filed: 10/09/24 22:13> Insight: Good insight present (Psych) <Bran Layo Ching III, DO - Last Filed: 10/09/24 22:13> Judgement: Good judgement present (Psych) <Bran Layo Ching III, DO - Last Filed: 10/09/24 22:13> Course Vital Signs Vital signs: Vital Signs Temperature 97.9 F 10/09/24 09:49 Pulse Rate 110 H 10/09/24 09:49 Respiratory Rate 16 10/09/24 09:49 Blood Pressure 113/61 10/09/24 09:49 Pulse Oximetry 100 10/09/24 09:49 Temperature 97.8 F 10/09/24 16:27 Pulse Rate 68 10/09/24 16:27 Respiratory Rate 18 10/09/24 16:27 Blood Pressure 117/61 10/09/24 16:27 Pulse Oximetry 100 10/09/24 16:27 <Liliana Rainey, DIAGNOSTIC MEDICAL SONOGRAPHER - Last Filed: 10/09/24 13:00> Vital Signs Temperature 97.9 F 10/09/24 09:49 Pulse Rate 110 H 10/09/24 09:49 Respiratory Rate 16 10/09/24 09:49 Blood Pressure 113/61 10/09/24 09:49 Pulse Oximetry 100 10/09/24 09:49 Temperature 97.8 F 10/09/24 16:27 Pulse Rate 68 10/09/24 16:27 Respiratory Rate 18 10/09/24 16:27 Blood Pressure 117/61 10/09/24 16:27 Pulse Oximetry 100 10/09/24 16:27 <Bran Vasques Ching III, DO - Last Filed: 10/09/24 22:13> Medical Decision Making MDM Narrative Medical decision making narrative: Pt has intermittent numbness and tingling to both feet since last night none now. labs ordered and no acute findings. will send home with PCP follow up if recurs. <Bran Vasques Ching III, DO - Last Filed: 10/09/24 22:13> Vital Signs Vital Signs: Vital Signs Temperature 97.9 F 10/09/24 09:49 Pulse Rate 110 H 10/09/24 09:49 Respiratory Rate 16 10/09/24 09:49 Blood Pressure 113/61 10/09/24 09:49 Pulse Oximetry 100 10/09/24 09:49 Temperature 97.8 F 10/09/24 16:27 Pulse Rate 68 10/09/24 16:27 Respiratory Rate 18 10/09/24 16:27 Blood Pressure 117/61 10/09/24 16:27 Pulse Oximetry 100 10/09/24 16:27 <Liliana Rainey, DIAGNOSTIC MEDICAL SONOGRAPHER - Last Filed: 10/09/24 13:00> Vital Signs Temperature 97.9 F 10/09/24 09:49 Pulse Rate 110 H 10/09/24 09:49 Respiratory Rate 16 10/09/24 09:49 Blood Pressure 113/61 10/09/24 09:49 Pulse Oximetry 100 10/09/24 09:49 Temperature 97.8 F 10/09/24 16:27 Pulse Rate 68 10/09/24 16:27 Respiratory Rate 18 10/09/24 16:27 Blood Pressure 117/61 10/09/24 16:27 Pulse Oximetry 100 10/09/24 16:27 <Bran Ching III, DO - Last Filed: 10/09/24 22:13> Lab Data Result diagrams: 10/09/24 10:10 10/09/24 10:10 <Liliana Rainey, DIAGNOSTIC MEDICAL SONOGRAPHER - Last Filed: 10/09/24 13:00> Labs: Lab Results 10/09/24 Range/Units 10:10 WBC 3.2 L (4.5-10.0) K/mm3 RBC 4.31 L (4.6-6.20) M/mm3 Hgb 14.2 (14.0-18.0) g/dL Hct 41.6 L (42.0-52.0) % MCV 96.5 (80-100) fl MCH 32.9 (26-34) pg MCHC 34.1 (32-36) g/dl RDW 11.6 (11.5-14.5) % Plt Count 191 (150-375) k/mm3 MPV 11.3 H (7.4-10.4) fl Immature Gran % (Auto) 0.3 (0-0.5) % Neut % (Auto) 44.9 L (45.5-73.1) % Lymph % (Auto) 40.8 (18.3-44.2) % [place] % (Auto) 11.2 H (2.6-8.5) % Eos % (Auto) 2.2 (0-4.4) % Baso % (Auto) 0.6 (0.2-1.2) % Lymph # (Auto) 1.31 (0.9-3.2) K/mm3 [place] # (Auto) 0.4 (0.1-0.6) K/mm3 Eos # (Auto) 0.1 (0-0.3) K/mm3 Baso # (Auto) 0.0 (0.0-0.1) K/mm3 Abs Immat Gran (auto) 0.01 (0.00-0.031) K/mm3 Absolute Neuts (auto) 1.4 (1.3-6.7) K/mm3 Absolute Nucleated RBC 0.000 (0.0-0.012) K/mm3 Nucleated RBC % 0.0 (0.0-0.2) % Sodium 137 (137-145) mmol/L Potassium 4.3 (3.4-5.0) mmol/L Chloride 108 H (98-107) mmol/L Carbon Dioxide 22 (22-30) mmol/L Anion Gap 7 (4-12) mmol/L BUN 16 (9-20) mg/dL Creatinine 0.90 (0.7-1.3) mg/dL Estim Creat Clear Calc 102 ml/min Estimated GFR > 60 (59 - ) Glucose 93 (65-110) mg/dL Calcium 9.5 (8.4-10.2) mg/dL Total Bilirubin 1.4 H (0.2-1.3) mg/dL AST 45 (17-59) U/L ALT 42 (6-50) U/L Alkaline Phosphatase 49 (38-126) U/L Total Protein 7.8 (6.3-8.2) g/dL Albumin 4.5 (3.5-5.1) g/dL <Liliana Rainey, DIAGNOSTIC MEDICAL SONOGRAPHER - Last Filed: 10/09/24 13:00> Lab Results 10/09/24 Range/Units 10:10 WBC 3.2 L (4.5-10.0) K/mm3 RBC 4.31 L (4.6-6.20) M/mm3 Hgb 14.2 (14.0-18.0) g/dL Hct 41.6 L (42.0-52.0) % MCV 96.5 (80-100) fl MCH 32.9 (26-34) pg MCHC 34.1 (32-36) g/dl RDW 11.6 (11.5-14.5) % Plt Count 191 (150-375) k/mm3 MPV 11.3 H (7.4-10.4) fl Immature Gran % (Auto) 0.3 (0-0.5) % Neut % (Auto) 44.9 L (45.5-73.1) % Lymph % (Auto) 40.8 (18.3-44.2) % [place] % (Auto) 11.2 H (2.6-8.5) % Eos % (Auto) 2.2 (0-4.4) % Baso % (Auto) 0.6 (0.2-1.2) % Lymph # (Auto) 1.31 (0.9-3.2) K/mm3 [place] # (Auto) 0.4 (0.1-0.6) K/mm3 Eos # (Auto) 0.1 (0-0.3) K/mm3 Baso # (Auto) 0.0 (0.0-0.1) K/mm3 Abs Immat Gran (auto) 0.01 (0.00-0.031) K/mm3 Absolute Neuts (auto) 1.4 (1.3-6.7) K/mm3 Absolute Nucleated RBC 0.000 (0.0-0.012) K/mm3 Nucleated RBC % 0.0 (0.0-0.2) % Sodium 137 (137-145) mmol/L Potassium 4.3 (3.4-5.0) mmol/L Chloride 108 H (98-107) mmol/L Carbon Dioxide 22 (22-30) mmol/L Anion Gap 7 (4-12) mmol/L BUN 16 (9-20) mg/dL Creatinine 0.90 (0.7-1.3) mg/dL Estim Creat Clear Calc 102 ml/min Estimated GFR > 60 (59 - ) Glucose 93 (65-110) mg/dL Calcium 9.5 (8.4-10.2) mg/dL Total Bilirubin 1.4 H (0.2-1.3) mg/dL AST 45 (17-59) U/L ALT 42 (6-50) U/L Alkaline Phosphatase 49 (38-126) U/L Total Protein 7.8 (6.3-8.2) g/dL Albumin 4.5 (3.5-5.1) g/dL <Bran Vasques Ching III, DO - Last Filed: 10/09/24 22:13> Discharge Plan Discharge Clinical Impression: Neuralgia <Liliana Rainey APRN - Last Filed: 10/09/24 13:00> Patient Disposition: Home <Liliana Rainey APRN - Last Filed: 10/09/24 13:00> Condition: Stable <Liliana Rainey APRN - Last Filed: 10/09/24 13:00> Instructions: Antibiotic Form, Paresthesia (ED) <Liliana Rainey APRN - Last Filed: 10/09/24 13:00> Patient Language: Occitan <Liliana Rainey APRN - Last Filed: 10/09/24 13:00> Prescriptions: No Action budesonide 0.25 mg/2 mL suspension for nebulization See Rx Instructions .ROUTE .COMPLEX Qty: 360 3RF Dose Instruction: USE 2 ML (1 VIAL) FOR IRRIGATION TWICE DAILY Rx Instructions: USE 2 ML (1 VIAL) FOR IRRIGATION TWICE DAILY budesonide-formoterol [Symbicort] 80-4.5 mcg/actuation HFA aerosol inhaler 1 inh inhalation BID Qty: 30.6 1RF albuterol sulfate 90 mcg/actuation HFA aerosol inhaler 2 puff inhalation Q4H PRN (Reason: shortness of breath or wheezing) Qty: 8.5 5RF <Liliana Rainey APRN - Last Filed: 10/09/24 13:00> Follow-up/Referrals: PHYSICIAN NOT ON STAFF,NONSTAFF [Primary Care Provider] - <Liliana Rainey APRN - Last Filed: 10/09/24 13:00> Stand Alone Forms: Work/School Release IP <Liliana Rainey APRN - Last Filed: 10/09/24 13:00>
--- OUTSIDE RECORDS SUMMARY | 2024-10-09 16:12 | XMS_ITS | Clinical Summary ---
Author Organization [facility] [address] Address [address] [place] [address] Care Team Providers Care Employee Health Rn Name Role Phone Summer Acosta Primary Care [...] Description 10/09/2024 9:15 AM CDT Office Visit [facility] at [address] [phone] Swati aGrcia NP Numbness and tingling of both feet (Primary Dx); Numbness in both legs; Lightheadedness from Last 3 Months Social History Tobacco Use Types Packs/Day Years Used Date Smoking Tobacco: Never Assessed Sex and Gender Information Value Date Recorded Sex Assigned at Not on file 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
--- OUTSIDE RECORDS SUMMARY | 2024-10-09 16:12 | XMS_ITS | Referral Summary ---
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
--- OUTSIDE RECORDS SUMMARY | 2024-10-09 16:12 | XMS_ITS | Encounter Summary ---
Author Organization [facility] Address [address] [place] [address] Care Team Providers Care Senior Stereo Compiler Team Lead Name Role Phone Summer Acosta Primary Care [...] Description 10/09/2024 9:15 AM CDT Office Visit 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
--- OUTSIDE RECORDS SUMMARY | 2024-10-09 16:12 | XMS_ITS | Clinical Summary ---
Author Organization [facility] Address [address] [place] [address] Care Team Providers Care Vein Access Technician Name Role Phone Unavailable Primary Care Provider [...]
--- OUTSIDE RECORDS SUMMARY | 2024-10-09 16:12 | XMS_ITS | Clinical Summary ---
Author Organization [facility] Address [address] [place] [address] Care Team Providers Care Dock Worker Name Role Phone Unavailable Primary Care Provider Unavailabl e Source Comments [facility] [employer],non-owned Affiliates and Associated Physician Practices is amultiple site organization consisting of ambulatory clinics and hospital sitesin [place], [place], [place] and [place]. This disclosure is being madepursuant to the Care Everywhere program and may not contain all information available regarding this patient. 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 Gender Identity Not on file Sexual Orientation Not on file Last Filed Vital Signs Vital Sign Reading Time Taken Comments Blood Pressure 118/76 07/09/2013 2:00 PM CDT Pulse 79 07/09/2013 2:00 PM CDT Temperature 36.9 C (98.4 F) 07/09/2013 2:00 PM CDT Respiratory Rate 18 05/06/2013 9:36 AM INDUSTRIAL HYGIENE ENGINEER Oxygen Saturation 98% 05/06/2013 9:36 AM INDUSTRIAL HYGIENE ENGINEER Inhaled Oxygen Concentration - - Weight 84.5 kg (186 lb 3.2 oz) 07/09/2013 2:00 P M CDT Height 193 cm (6' 4) 05/05/2013 12:16 AM INDUSTRIAL HYGIENE ENGINEER Body Mass Index 22.66 05/05/2013 12:16 AM INDUSTRIAL HYGIENE ENGINEER Plan of Treatment Health Maintenance Due Date [...]
[2024-10-09 16:27] VITALS: BP 117/61; PULSE 68; RESP 18; TEMP 36.6; O2SAT 100
== END 2024-10-09 16:36 | disposition home or self-care (01) ==
PROVIDERS: Emergency Medicine; Emergency Provider Emergency Medicine
DX: M79.2 Neuralgia and neuritis, unspecified (principal); J45.909 Unspecified asthma, uncomplicated; F17.290 Nicotine dependence, other tobacco product, uncomplicated; R94.31 Abnormal electrocardiogram [ECG] [EKG]
CPT/HCPCS: 36415; 71046; 80053; 85025; 93005; 99284